=== PATIENT | male | born 1975 | race Caucasian/White ===

== ENCOUNTER 2017-07-23 07:45 | Day surgery (SDC) | payer BC, MEDICARE ==
[~2017-07-23 07:45] MED LIST: Lactated Ringers 1,000 ML IV SCH; Lidocaine 2% 5 ML SDV ONE; Propofol 200 MG/20 ML SDV ONE; fentaNYL 100 MCG/2 ML SDV IVPUSH PRN; fentaNYL 100 MCG/2 ML SDV ONE
--- NOTE | 2017-07-23 08:12 | PCM.PREANE ---
Preanesthetic Assessment - Anesthesia/Transfusion/Family Hx Anesthesia History: Prior Anesthesia Reaction Type of Anesthesia Reaction: Other (see below) (sore throat post anesthesia) Family History of Anesthesia Reaction: No Transfusion History: No Prior Transfusion(s) Intubation History: Unknown - Review of Systems General: No Symptoms Pulmonary: No Symptoms Cardiovascular: No Symptoms Gastrointestinal: No Symptoms Neurological: No Symptoms Other: Reports: None - Physical Assessment Height: 1.75 m Weight: 109.769 kg ASA Class: 3 Mental Status: Alert & Oriented x3 Airway Class: Mallampati = 2 Dentition: Reports: Normal Dentition (grinded edges on front teeth) Thyro-Mental Finger Breadths: 3 Mouth Opening Finger Breadths: 2 ROM/Head Extension: Full Lungs: Clear to Auscultation, Normal Respiratory Effort Cardiovascular: Regular Rate, Regular Rhythm - Allergies Allergies/Adverse Reactions: Allergies Allergy/AdvReac Type Severity Reaction Status Date / Time codeine Allergy Nausea and Verified 07/22/17 10:38 Vomiting morphine Allergy Nausea and Verified 07/22/17 10:38 Vomiting - Blood Blood Available: No - Anesthesia Plan Pre-Op Medication Ordered: None - Acknowledgements Anesthesia Type Planned: General Anesthesia Pt an Appropriate Candidate for the Planned Anesthesia: Yes Alternatives and Risks of Anesthesia Discussed w Pt/Guardian: Yes Pt/Guardian Understands and Agrees with Anesthesia Plan: Yes PreAnesthesia Questionnaire HEENT History: Reports: Other (See Below) Other HEENT History: uses reading glasses Gastrointestinal History: Reports: GERD Genitourinary History: Reports: Renal Disease Other Genitourinary History: previous hemodialysis, on peritoneal dialysis since couple of weeks ago ( 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) Endocrine/Metabolic History: Reports: Obesity/BMI 30+ (BMI 35.7) Hematologic History: Reports: Anticoagulation Therapy Other Hematologic History: takes heparin weekly Immunologic History: Reports: Immunosuppression - Past Surgical History Head Surgeries/Procedures: Reports: None Male Surgical History: Reports: Nephrectomy Other Male Surgeries/Procedures: hx of failed kidney transplant 11/01, hemodialysis cath 12/01, peritoneal dialysis cath 2 weeks ago - SUBSTANCE USE Smoking Status *Q: Never Smoker Recreational Drug Use History: No - HOME MEDS Home Medications: Home Meds Aspirin [[place] Aspirin] 1 tab PO BEDTIME 07/22/17 [History] Bisacodyl [Dulcolax] 5 mg PO BEDTIME 07/22/17 [History] Folic Acid 1 mg PO BEDTIME 07/22/17 [History] Multivitamin [Multivitamins] 1 tab PO BEDTIME 07/22/17 [History] Sevelamer Carbonate [Renvela] 1 tab PO TIDMEALS 07/22/17 [History] predniSONE [Prednisone] 5 mg PO BEDTIME 07/22/17 [History] - CURRENT (IN HOUSE) MEDS Current Meds: Current Medications Fentanyl (Sublimaze) 50 mcg IVPUSH .Q5MIN PRN PRN Reason: Pain Lactated Ringer's (Ringers, Lactated) 1,000 mls @ 125 mls/hr IV ASDIRECTED BRANDON Discontinued Medications Fentanyl (Sublimaze) Confirm Administered Dose 100 mcg .ROUTE .STK-MED ONE Stop: 07/23/17 07:27 Lidocaine (Xylocaine-Mpf 2%) Confirm Administered Dose 5 ml .ROUTE .STK-MED ONE Stop: 07/23/17 07:27 Propofol (Diprivan 20 Ml) Confirm Administered Dose 400 mg .ROUTE .STK-MED ONE Stop: 07/23/17 07:27
[2017-07-23] MEDS ORDERED: Bupivacaine 0.5% 10 ML SDV ONE (08:16)
[2017-07-23] MEDS ORDERED: Lidocaine 1% 20 ML MDV ONE (08:16)
--- NOTE | 2017-07-23 09:43 | PCM.OPNOTE ---
- General Post-Op/Procedure Note Date of Surgery/Procedure: 07/23/17 Operative Procedure(s): Removal Henrry dialysis catheter Pre Op Diagnosis: Chronic renal failure. Peritoneal dialysis patient. Post-Op Diagnosis: Same Anesthesia Technique: Local, MAC (ASA III) Primary Surgeon: Nik Hernandez Fluid Replacement, Intraop: 50 EBL in mLs: 5 Condition: Good Free Text/Narrative:: Intake & Output 07/22/17 07/23/17 07/23/17 19:59 03:59 11:59 Intake Total 150 Balance 150 DICTATION [id number] CPT CODE 65732
[2017-07-23] MEDS ORDERED: Lactated Ringers 1,000 ML IV SCH (09:45)
--- NOTE | 2017-07-23 09:54 | PCM48HPAN ---
Post Anesthesia Note - EVALUATION WITHIN 48HRS OF ANESTHETIC Vital Signs in Normal Range: Yes Patient Participated in Evaluation: Yes Respiratory Function Stable: Yes Airway Patent: Yes Cardiovascular Function Stable: Yes Hydration Status Stable: Yes Pain Control Satisfactory: Yes Nausea and Vomiting Control Satisfactory: Yes Mental Status Recovered: Yes Resp Rate: 13 - COMMENTS/OBSERVATIONS Free Text/Narrative:: no anesthesia problems
[2017-07-23 09:57] VITALS: BP 122/77
--- NOTE | 2017-07-23 14:06 | OR ---
SURGEON: Nik Hernandez M.D. DATE OF PROCEDURE: 07/23/2017 OPERATION PERFORMED: Removal of Henrry dialysis catheter. ANESTHESIA: Local MAC. ASA CLASSIFICATION: III. PREOPERATIVE DIAGNOSIS: Desire for dialysis catheter removal. POSTOPERATIVE DIAGNOSIS: Desire for dialysis catheter removal. ESTIMATED BLOOD LOSS: 5 mL. INTRAOPERATIVE FLUID REPLACEMENT: 50 mL. DESCRIPTION OF PROCEDURE: The patient was taken to the operating room and placed on the operating table in the supine position. Time-out was called for appropriate identification of the patient and procedure. Monitored anesthesia care was provided. The surgical site was prepped with ChloraPrep and sterile drapes were applied. The catheter was manipulated in attempt to find the cuff, which appeared to be approximately 3 cm from the exit site. The skin overlying this was then infiltrated with 1% Xylocaine and 0.5% Marcaine solution. The skin incision was made and deepened down to the catheter ventrally identifying the cuff more distally. The catheter was cut and the intravascular portion removed. Pressure was held over the right internal jugular for 2 minutes. Once the pressure was released, there was no bleeding. The remainder of the catheter, which had been cut was now removed. The wounds were inspected for hemostasis and bleeding sites were electrocoagulated. Incisions closed with subcutaneous 3-0 Vicryl and the skin with 4-0 nylon. Sterile Tegaderm pad was placed as a dressing. Sponge, needle, and instrument counts were all correct. The patient tolerated the procedure well and was taken to recovery room in satisfactory condition. GURERERO / ANTHONY /[id number]
== END 2017-07-23 10:18 | disposition home or self-care (01) ==
LOC: MW.SDS 07:45
PROVIDERS: ATTEND Surgery
DX: Z49.02 Encounter for fitting and adjustment of peritoneal dialysis catheter (principal); N18.9 Chronic kidney disease, unspecified; K21.9 Gastro-esophageal reflux disease without esophagitis; Z88.5 Allergy status to narcotic agent; Z79.82 Long term (current) use of aspirin; Z79.899 Other long term (current) drug therapy
CPT/HCPCS: 36415; 49422; 84132; J3010; J2704

== ENCOUNTER 2018-02-21 12:02 | Emergency (ER) | payer BC, MEDICARE ==
[2018-02-21] MEDS ORDERED: Sodium Chloride 0.9% 10 ML Syringe FLUSH PRN (12:13)
[2018-02-21] MEDS ORDERED: Sodium Chloride 0.9% 2.5 ML Syringe FLUSH PRN (12:13)
[2018-02-21] MEDS ORDERED: Ondansetron 4 MG/2 ML SDV IVPUSH ONE (12:27)
--- NOTE | 2018-02-21 12:34 | EDM.PDOC ---
ED HPI GENERAL MEDICAL PROBLEM - General Chief Complaint: Abdominal Pain Stated Complaint: STOMACH PAIN Time Seen by Provider: 02/21/18 12:08 Source of Information: Reports: Family History Limitations: Reports: No Limitations - History of Present Illness INITIAL COMMENTS - FREE TEXT/NARRATIVE: History of present illness: []Patient has a history of renal failure who received a kidney transplant on October 26, 2016. He has been on peritoneal dialysis for 6 months. Before that he was on hemodialysis. Patient has had belly pain with vomiting for one week but denies any fevers, chills or any abnormal diarrhea. Patient had peritoneal dialysis last night and the notes that the clear no cloudiness or blood. Review of systems: As per history of present illness and below otherwise all systems reviewed and negative. Past medical history: As per history of present illness and as reviewed below otherwise noncontributory. Surgical history: As per history of present illness and as reviewed below otherwise noncontributory. Social history: No reported history of drug or alcohol abuse. Family history: As per history of present illness and as reviewed below otherwise noncontributory. Physical exam: General: Well developed, well nourished in NAD HEENT: Atraumatic, normocephalic, pupils reactive, negative for conjunctival pallor or scleral icterus, mucous membranes moist, throat clear, neck supple, nontender, trachea midline. Lungs: Clear to auscultation, breath sounds equal bilaterally, chest nontender. Heart: S1S2, regular, negative for clicks, rubs, or JVD. Abdomen: NABS, Soft, nondistended, nontender. Negative for masses or hepatosplenomegaly. Negative for costovertebral tenderness. Pelvis: Stable nontender. Genitourinary: Deferred. Rectal: Deferred. Extremities: Atraumatic, negative for cords or calf pain. Neurovascular unremarkable. Neuro: Awake, alert, oriented. Cranial nerves II through XII unremarkable. Cerebellum unremarkable. Motor and sensory unremarkable throughout. Exam nonfocal. Skin:warm and dry Diagnostics: CT abdomen and pelvis, CBC, chemistry, lipase Therapeutics: None ED Course: 12:25-spoke with Dr. Servin from [facility] who recommended CT abdomen pelvis without contrast and then transferred patient for admission and [place] for further workup. Impression: Renal failure Prescriptions: Plan: Transfer to to Dr. Forrester in the ED accepts patient Definitive disposition and diagnosis as appropriate pending reevaluation and review of above. abdominal Pain Score (Numeric/FACES): 5 - Related Data Allergies Allergy/AdvReac Type Severity Reaction Status Date / Time codeine Allergy Nausea and Verified 02/21/18 12:15 Vomiting morphine Allergy Nausea and Verified 02/21/18 12:15 Vomiting Home Meds: Home Meds Aspirin [[place] Aspirin EC] 1 tab PO BEDTIME 07/22/17 [History] Bisacodyl [Dulcolax] 5 mg PO BID 07/22/17 [History] Folic Acid 1 mg PO DAILY 07/22/17 [History] Multivitamin [Multivitamins] 1 tab PO BEDTIME 07/22/17 [History] Sevelamer Carbonate [Renvela] 1 tab PO TIDMEALS 07/22/17 [History] predniSONE [Prednisone] 5 mg PO DAILY 07/22/17 [History] Sertraline HCl [Zoloft] 5 mg PO BID 02/21/18 [History] Past Medical History HEENT History: Reports: Other (See Below) Other HEENT History: uses reading glasses Gastrointestinal History: Reports: GERD Genitourinary History: Reports: Renal Disease Other Genitourinary History: previous hemodialysis, on peritoneal dialysis since couple of weeks ago ( 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) Psychiatric History: Reports: Anxiety, Depression Endocrine/Metabolic History: Reports: Obesity/BMI 30+ Hematologic History: Reports: Anticoagulation Therapy Other Hematologic History: takes heparin weekly Immunologic History: Reports: Immunosuppression - Infectious Disease History Infectious Disease History: Reports: Chicken Pox - Past Surgical History Head Surgeries/Procedures: Reports: None Male Surgical History: Reports: Nephrectomy Other Male Surgeries/Procedures: hx of failed kidney transplant 11/01, hemodialysis cath 12/01, peritoneal dialysis cath Social & Family History - Family History Family Medical History: Noncontributory - Tobacco Use Smoking Status *Q: Never Smoker Second Hand Smoke Exposure: No - Caffeine Use Caffeine Use: Reports: Soda - Recreational Drug Use Recreational Drug Use: No - Living Situation & Occupation Living situation: Reports: Occupation: Disabled ED ROS GENERAL - Review of Systems Review Of Systems: ROS reveals no pertinent complaints other than HPI. ED EXAM, RENAL/ - Physical Exam Exam: See Below (See history of present illness) Course - Vital Signs Last Recorded V/S: Last Vital Signs Temp 97.4 F 02/21/18 12:50 Pulse 95 02/21/18 12:50 Resp 18 02/21/18 12:50 BP 113/75 02/21/18 12:50 Pulse Ox 98 02/21/18 12:50 - Orders/Labs/Meds Orders: Active Orders 24 hr Category Date Time Status Abdomen Pelvis wo Cont [CT] Stat Exams 02/21/18 12:25 Taken Saline Lock Insert [OM.PC] Stat Oth 02/21/18 12:13 Ordered Labs: Laboratory Tests 02/21/18 02/21/18 Range/Units 12:20 12:20 WBC 12.25 H (4.0-11.0) K/uL RBC 3.53 L (4.50-5.90) M/uL Hgb 11.9 L (13.0-17.0) g/dL Hct 34.0 L (38.0-50.0) % MCV 96.3 (80.0-98.0) fL MCH 33.7 H (27.0-32.0) pg MCHC 35.0 (31.0-37.0) g/dL RDW Std Deviation 46.1 (28.0-62.0) fl RDW Coeff of Melissa 13 (11.0-15.0) % Plt Count 270 (150-400) K/uL MPV 9.30 (7.40-12.00) fL Add Manual Diff YES Neutrophils % (Manual) 69 (48.0-80.0) % Band Neutrophils % 3 % Lymphocytes % (Manual) 21 (16.0-40.0) % Monocytes % (Manual) 5 (0.0-15.0) % Eosinophils % (Manual) 1 (0.0-7.0) % Basophils % (Manual) 1 (0.0-1.5) % Nucleated RBC % 0.0 /100WBC Absolute Seg Neuts 8.5 H (1.4-5.7) Band Neutrophils # 0.4 Lymphocytes # (Manual) 2.6 H (0.6-2.4) Monocytes # (Manual) 0.6 (0.0-0.8) Eosinophils # (Manual) 0.1 (0.0-0.7) Basophils # (Manual) 0.1 (0.0-0.1) Nucleated RBCs # 0 K/uL Sodium 136 (136-148) mmol/L Potassium 3.9 (3.5-5.1) mmol/L Chloride 97 L (98-107) mmol/L Carbon Dioxide 21.3 (21.0-32.0) mmol/L BUN 71 H (7.0-18.0) mg/dL Creatinine 16.2 H (0.8-1.3) mg/dL Est Cr Clr Drug Dosing 5.82 mL/min Estimated GFR (MDRD) 3.3 ml/min Glucose 123 H (74-106) mg/dL Calcium 9.5 (8.5-10.1) mg/dL Total Bilirubin 0.4 (0.2-1.0) mg/dL AST 12 L (15-37) IU/L ALT 41 (14-63) IU/L Alkaline Phosphatase 95 (46-116) U/L Total Protein 8.5 H (6.4-8.2) g/dL Albumin 3.8 (3.4-5.0) g/dL Globulin 4.7 H (2.6-4.0) g/dL Albumin/Globulin Ratio 0.8 L (0.9-1.6) Meds: Medications Discontinued Medications Generic Name Dose Route Start Last Admin Trade Name Freq PRN Reason Stop Dose Admin Ondansetron HCl 4 mg 02/21/18 12:27 02/21/18 12:49 Zofran IVPUSH 02/21/18 12:28 4 mg ONETIME ONE Administration Sodium Chloride 10 ml 02/21/18 12:13 02/21/18 12:49 Saline Flush FLUSH 10 ml ASDIRECTED PRN Administration Keep Vein Open Sodium Chloride 2.5 ml 02/21/18 12:13 02/21/18 12:49 Saline Flush FLUSH 2.5 ml ASDIRECTED PRN Administration Keep Vein Open Departure - Departure Time of Disposition: 13:00 Disposition: DC/Tfer to Acute Hospital 02 Condition: Good Clinical Impression: Abdominal pain, Peritoneal dialysis catheter in place, Renal failure, Renal transplant recipient - Discharge Information *PRESCRIPTION DRUG MONITORING PROGRAM REVIEWED*: No *COPY OF PRESCRIPTION DRUG MONITORING REPORT IN PATIENT HARSHA: No Referrals: Jerzy Camacho MD [Primary Care Provider] - Forms: ED Department Discharge - My Orders Last 24 Hours: My Active Orders 02/21/18 12:13 Saline Lock Insert [OM.PC] Stat 02/21/18 12:25 Abdomen Pelvis wo Cont [CT] Stat - Assessment/Plan Last 24 Hours: My Active Orders 02/21/18 12:13 Saline Lock Insert [OM.PC] Stat 02/21/18 12:25 Abdomen Pelvis wo Cont [CT] Stat
[2018-02-21 12:51] VITALS: BP 113/75
--- NOTE | 2018-02-22 10:55 | CT ---
EXAM DATE: 02/21/18 PATIENT'S AGE: 42 Patient: ALFREDA SARABIA Facility: [place], [place] Site . Site : [id number] Study: CT Abdomen/Pelvis WO CONT [id number] 12:59:09 PM Ordering Physician: Zoran Duarte Final Report: INDICATION: Abdominal pain. COMPARISON: CT abdomen pelvis dated 03/31/2017. TECHNIQUE: A CT volumetric acquisition was performed of the abdomen and pelvis without IV contrast. FINDINGS: The lung bases are clear. There is no evidence of pleural or pericardial fluid. Heart size appears normal. The patient`s liver and spleen demonstrate normal size and uniform density. There is no evidence of mass or inflammation within the pancreas. On image 24 there is a stable soft tissue bulge projecting posteriorly off the gastric fundus. This measures 2.4 x 1.7 cm. The surrounding fat planes appear clear. Findings are indeterminate. Changes could indicate a leiomyoma of the gastric wall. A gastrointestinal stromal tumor or other malignant process cannot be excluded with certainty. Gallbladder and bile ducts appear normal. The adrenal glands have normal morphology. The [place] kidneys appear stable. There are bilateral nonobstructing calculi. The largest calculus within the lower pole left kidney measures 16 mm. There is a stable 2.1 cm cyst projecting posteriorly off the lower margin of the right kidney. There is no evidence of ureteral calculus or hydronephrosis. The abdominal aorta appears normal. There is no evidence retroperitoneal hemorrhage on lymphadenopathy. The appendix is visualized in the right lower quadrant and appears normal. The right pelvic transplant kidney appears stable with no evidence of hydronephrosis. There is normal appearance of the small intestine and colon. Prostate gland appears normal. The urinary bladder is contracted. There is no evidence of dependent fluid in the cul de sac. IMPRESSION: 1. No acute inflammatory change noted within the abdomen and pelvis. 2. Stable renal calculi within the [place] kidneys. No evidence of obstructive hydronephrosis. 3. Stable soft tissue mass projecting posteriorly off the gastric fundus. Consider further characterization with a MRI exam. Please note that all CT scans at this facility use dose modulation, iterative reconstruction, and/or weight-based dosing when appropriate to reduce radiation dose to as low as reasonably achievable. Dictated by Sim Cardona MD @ Feb 21 2018 1:41PM (Electronic Signature) Report Signed by Proxy. [facility]
== END 2018-02-21 13:01 ==
LOC: MW.ED 12:02
DX: N19 Unspecified kidney failure (principal); Z49.02 Encounter for fitting and adjustment of peritoneal dialysis catheter; K21.9 Gastro-esophageal reflux disease without esophagitis; F32.9 Major depressive disorder, single episode, unspecified; F41.9 Anxiety disorder, unspecified; Z79.82 Long term (current) use of aspirin; Z79.899 Other long term (current) drug therapy; Z94.0 Kidney transplant status; Z88.5 Allergy status to narcotic agent; Z88.6 Allergy status to analgesic agent
CPT/HCPCS: 74176; 80053; 85025; 96374; 99285; J2405

== ENCOUNTER 2018-12-13 17:56 | Emergency (ER) | payer BC, MEDICARE ==
[2018-12-13] MEDS ORDERED: Sodium Chloride 0.9% 10 ML Syringe FLUSH PRN (18:04)
[2018-12-13] MEDS ORDERED: Sodium Chloride 0.9% 2.5 ML Syringe FLUSH PRN (18:04)
[2018-12-13] MEDS ORDERED: Ondansetron 4 MG/2 ML SDV IVPUSH ONE ×2 (18:05→19:35)
[2018-12-13] MEDS ORDERED: fentaNYL 100 MCG/2 ML SDV IVPUSH ONE (18:05)
[2018-12-13] MEDS ORDERED: Sodium Chloride 0.9% 250 ML IV SCH (18:15)
--- NOTE | 2018-12-13 18:20 | EDM.PDOC ---
<Sim Aragon J - Last Filed: 12/13/18 18:06> ED HPI GENERAL MEDICAL PROBLEM - General Chief Complaint: General Stated Complaint: ILL AFTER DIALYSIS Time Seen by Provider: 12/13/18 18:00 - History of Present Illness INITIAL COMMENTS - FREE TEXT/NARRATIVE: HISTORY AND PHYSICAL: History of present illness: Patient 43-year-old male history of chronic renal failure who presents status post dialysis in which he developed a headache and generally feeling ill states he had similar episodes in the past that has responded to analgesics and IV fluid. He denies fever chills nausea vomiting recent head injury chest pain shortness breath or other concern. Review of systems: As per history of present illness and below otherwise all systems reviewed and negative. Past medical history: As per history of present illness and as reviewed below otherwise noncontributory. Surgical history: As per history of present illness and as reviewed below otherwise noncontributory. Social history: No reported history of drug or alcohol abuse. Family history: As per history of present illness and as reviewed below otherwise noncontributory. Physical exam: HEENT: Atraumatic, normocephalic, pupils reactive, negative for conjunctival pallor or scleral icterus, mucous membranes moist, throat clear, neck supple, nontender, trachea midline. Lungs: Clear to auscultation, breath sounds equal bilaterally, chest nontender. Heart: S1S2, regular, negative for clicks, rubs, or JVD. Abdomen: Soft, nondistended, nontender. Negative for masses or hepatosplenomegaly. Negative for costovertebral tenderness. Pelvis: Stable nontender. Genitourinary: Deferred. Rectal: Deferred. Extremities: Atraumatic, negative for cords or calf pain. Neurovascular unremarkable. Neuro: Awake, alert, oriented. Cranial nerves II through XII unremarkable. Cerebellum unremarkable. Motor and sensory unremarkable throughout. Exam nonfocal. Diagnostics: CBC CMP troponin PT/INR chest x-ray EKG CT brain Therapeutics: Saline 250 mL bolus fentanyl 25 g IV Zofran 4 mg IV Impression: #1 cephalgia #2 chronic renal failure Definitive disposition and diagnosis as appropriate pending reevaluation and review of above. - Related Data Allergies Allergy/AdvReac Type Severity Reaction Status Date / Time codeine Allergy Nausea and Verified 12/13/18 18:17 Vomiting morphine Allergy Nausea and Verified 12/13/18 18:17 Vomiting Home Meds: Home Meds Aspirin [[place] Aspirin EC] 1 tab PO BEDTIME 07/22/17 [History] Bisacodyl [Dulcolax] 5 mg PO BID 07/22/17 [History] Folic Acid 1 mg PO DAILY 07/22/17 [History] Multivitamin [Multivitamins] 1 tab PO BEDTIME 07/22/17 [History] Sevelamer Carbonate [Renvela] 1 tab PO TIDMEALS 07/22/17 [History] predniSONE [Prednisone] 5 mg PO DAILY 07/22/17 [History] Sertraline HCl [Zoloft] 5 mg PO BID 02/21/18 [History] Past Medical History HEENT History: Reports: Other (See Below) Other HEENT History: uses reading glasses Gastrointestinal History: Reports: GERD Genitourinary History: Reports: Renal Disease Other Genitourinary History: previous hemodialysis, on peritoneal dialysis since couple of weeks ago ( 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) Psychiatric History: Reports: Anxiety, Depression Endocrine/Metabolic History: Reports: Obesity/BMI 30+ Hematologic History: Reports: Anticoagulation Therapy Other Hematologic History: takes heparin weekly Immunologic History: Reports: Immunosuppression - Infectious Disease History Infectious Disease History: Reports: Chicken Pox - Past Surgical History Head Surgeries/Procedures: Reports: None Male Surgical History: Reports: Nephrectomy Other Male Surgeries/Procedures: hx of failed kidney transplant 11/01, hemodialysis cath 12/01, peritoneal dialysis cath Social & Family History - Family History Family Medical History: Noncontributory - Caffeine Use Caffeine Use: Reports: Soda - Living Situation & Occupation Living situation: Reports: Occupation: Disabled ED ROS GENERAL - Review of Systems Review Of Systems: ROS reveals no pertinent complaints other than HPI. ED EXAM, GENERAL - Physical Exam Exam: See Below (See dictation) Course - Vital Signs Last Recorded V/S: Last Vital Signs Temp 96.9 F 12/13/18 18:15 Pulse 72 12/13/18 19:03 Resp 16 12/13/18 19:03 BP 127/79 12/13/18 19:03 Pulse Ox 98 12/13/18 19:03 - Orders/Labs/Meds Orders: Active Orders 24 hr Category Date Time Status Cardiac Monitoring [RC] . DIRECTED Care 12/13/18 18:04 Active EKG Documentation Completion [RC] STAT Care 12/13/18 18:04 Active Oxygen Therapy [RC] ASDIRECTED Care 12/13/18 18:04 Active UA W/MICROSCOPIC [URIN] Stat Lab 12/13/18 18:04 Ordered Sodium Chloride 0.9% [Normal Saline] 250 ml Med 12/13/18 18:15 Active IV STAT Sodium Chloride 0.9% [Saline Flush] Med 12/13/18 18:04 Active 10 ml FLUSH ASDIRECTED PRN Sodium Chloride 0.9% [Saline Flush] Med 12/13/18 18:04 Active 2.5 ml FLUSH ASDIRECTED PRN Saline Lock Insert [OM.PC] Stat Oth 12/13/18 18:04 Ordered Medication Orders Sodium Chloride (Normal Saline) 250 mls @ 999 mls/hr IV STAT BRANDON Last Admin: 12/13/18 18:25 Dose: 999 mls/hr Sodium Chloride (Saline Flush) 10 ml FLUSH ASDIRECTED PRN PRN Reason: Keep Vein Open Sodium Chloride (Saline Flush) 2.5 ml FLUSH ASDIRECTED PRN PRN Reason: Keep Vein Open Labs: Laboratory Tests 12/13/18 12/13/18 12/13/18 Range/Units 18:15 18:15 18:15 WBC 9.21 (4.0-11.0) K/uL RBC 3.58 L (4.50-5.90) M/uL Hgb 11.7 L (13.0-17.0) g/dL Hct 34.2 L (38.0-50.0) % MCV 95.5 (80.0-98.0) fL MCH 32.7 H (27.0-32.0) pg MCHC 34.2 (31.0-37.0) g/dL RDW Std Deviation 45.6 (28.0-62.0) fl RDW Coeff of Melissa 13 (11.0-15.0) % Plt Count 222 (150-400) K/uL MPV 9.50 (7.40-12.00) fL Neut % (Auto) 69.0 (48.0-80.0) % Lymph % (Auto) 19.1 (16.0-40.0) % [place] % (Auto) 7.1 (0.0-15.0) % Eos % (Auto) 4.3 (0.0-7.0) % Baso % (Auto) 0.5 (0.0-1.5) % Neut # (Auto) 6.4 H (1.4-5.7) K/uL Lymph # (Auto) 1.8 (0.6-2.4) K/uL [place] # (Auto) 0.7 (0.0-0.8) K/uL Eos # (Auto) 0.4 (0.0-0.7) K/uL Baso # (Auto) 0.1 (0.0-0.1) K/uL Nucleated RBC % 0.0 /100WBC Nucleated RBCs # 0 K/uL INR 0.96 Sodium 136 (136-148) mmol/L Potassium 4.0 (3.5-5.1) mmol/L Chloride 94 L (98-107) mmol/L Carbon Dioxide 29.9 (21.0-32.0) mmol/L BUN 36 H (7.0-18.0) mg/dL Creatinine 7.9 H (0.8-1.3) mg/dL Est Cr Clr Drug Dosing 11.81 mL/min Estimated GFR (MDRD) 7.4 ml/min Glucose 94 (74-106) mg/dL Calcium 9.0 (8.5-10.1) mg/dL Total Bilirubin 0.3 (0.2-1.0) mg/dL AST 17 (15-37) IU/L ALT 31 (14-63) IU/L Alkaline Phosphatase 86 (46-116) U/L Troponin I < 0.050 (0.000-0.056) ng/mL Total Protein 8.6 H (6.4-8.2) g/dL Albumin 4.0 (3.4-5.0) g/dL Globulin 4.6 H (2.6-4.0) g/dL Albumin/Globulin Ratio 0.9 (0.9-1.6) Meds: Medications Generic Name Dose Route Start Last Admin Trade Name Freq PRN Reason Stop Dose Admin Sodium Chloride 250 mls @ 999 mls/hr 12/13/18 18:15 12/13/18 18:25 Normal Saline IV 999 mls/hr STAT BRANDON Administration Sodium Chloride 10 ml 12/13/18 18:04 Saline Flush FLUSH ASDIRECTED PRN Keep Vein Open Sodium Chloride 2.5 ml 12/13/18 18:04 Saline Flush FLUSH ASDIRECTED PRN Keep Vein Open Discontinued Medications Generic Name Dose Route Start Last Admin Trade Name [place] PRN Reason Stop Dose Admin Fentanyl 25 mcg 12/13/18 18:05 12/13/18 18:26 Sublimaze IVPUSH 12/13/18 18:06 25 mcg ONETIME ONE Administration Ondansetron HCl 4 mg 12/13/18 18:05 12/13/18 18:26 Zofran IVPUSH 12/13/18 18:06 4 mg ONETIME ONE Administration Departure - Departure Disposition: Home, Self-Care 01 Clinical Impression: Cephalgia - Discharge Information Referrals: Guy Nunez MD [Primary Care Provider] - Forms: ED Department Discharge Additional Instructions: The following information is given to patients seen in the emergency department who are being discharged to home. This information is to outline your options for follow-up care. We provide all patients seen in our emergency department with a follow-up referral. The need for follow-up, as well as the timing and circumstances, are variable depending upon the specifics of your emergency department visit. If you don't have a primary care physician on staff, we will provide you with a referral. We always advise you to contact your personal physician following an emergency department visit to inform them of the circumstance of the visit and for follow-up with them and/or the need for any referrals to a consulting specialist. The emergency department will also refer you to a specialist when appropriate. This referral assures that you have the opportunity for follow-up care with a specialist. All of these measure are taken in an effort to provide you with optimal care, which includes your follow-up. Under all circumstances we always encourage you to contact your private physician who remains a resource for coordinating your care. When calling for follow-up care, please make the office aware that this follow-up is from your recent emergency room visit. If for any reason you are refused follow-up, please contact the [facility] emergency department at and asked to speak to the emergency department charge nurse. <Omar Vance - Last Filed: 12/13/18 19:31> ED ROS GENERAL - Review of Systems Review Of Systems: See Below ED EXAM, GENERAL - Physical Exam Exam: See Below Departure - Departure Time of Disposition: 19:31 Condition: Good
[2018-12-13 18:44] LABS: BLOOD UREA NITROGEN,BUN 36 mg/dL (7.0-18.0); CARBON DIOXIDE,CO2 29.9 mmol/L (21.0-32.0); CHLORIDE,CL 94 mmol/L (98-107); GLUCOSE RANDOM 94 mg/dL (74-106); SODIUM,NA 136 mmol/L (136-148)
--- NOTE | 2018-12-13 19:07 | CR ---
Indication: Headache. Weakness after dialysis. Technique: A single AP portable view of the chest was obtained. Comparison: None Findings: A right-sided infusion catheter is identified. The left hemidiaphragm is elevated. The heart is normal in size. No infiltrate, pleural effusion, or pneumothorax is identified. Impression: No acute cardiopulmonary process. Dictated by Blank Maxwell MD @ Dec 13 2018 7:06PM Signed by Dr. Blank Maxwell @ Dec 13 2018 7:06PM
--- NOTE | 2018-12-13 19:14 | CT ---
INDICATION: Head pain TECHNIQUE: CT head without contrast. COMPARISON: None FINDINGS: CSF spaces: Within normal limits for age. Brain parenchyma: The gaines-white differentiation is normal. No sign of mass, hemorrhage, or midline shift. Skull base and calvarium: The visualized paranasal sinuses and mastoid air cells demonstrate no acute or significant findings. The visualized orbits are grossly unremarkable. No skull fractures. IMPRESSION: Unremarkable noncontrast head CT. Please note that all CT scans at this facility use dose modulation, iterative reconstruction, and/or weight-based dosing when appropriate to reduce radiation dose to as low as reasonably achievable. Dictated by Makayla Whitt MD @ Dec 13 2018 7:11PM Signed by Dr. Makayla Whitt @ Dec 13 2018 7:12PM
[2018-12-13 19:37] VITALS: BP 129/75; PULSE 79
[2018-12-13] MEDS ORDERED: diphenhydrAMINE 50 MG/ML SDV IVPUSH ONE (19:45)
== END 2018-12-13 20:11 | disposition home or self-care (01) ==
LOC: MW.ED 17:56
DX: R51 Headache (principal); N18.6 End stage renal disease; E66.9 Obesity, unspecified; F32.9 Major depressive disorder, single episode, unspecified; F41.9 Anxiety disorder, unspecified; Z68.36 Body mass index [BMI] 36.0-36.9, adult; Z79.82 Long term (current) use of aspirin; Z79.899 Other long term (current) drug therapy; Z88.5 Allergy status to narcotic agent; Z88.6 Allergy status to analgesic agent; Z99.2 Dependence on renal dialysis
CPT/HCPCS: 36415; 70450; 71045; 80053; 84484; 85025; 85610; 93005; 96374; 96375; 96376; 99284; J1200; J2405; J3010; J7050

== ENCOUNTER 2019-01-02 07:51 | Day surgery (SDC) | payer BC, MEDICARE ==
[~2019-01-02 07:51] MED LIST changes: -Lidocaine 2% 5 ML SDV ONE; -Propofol 200 MG/20 ML SDV ONE; -fentaNYL 100 MCG/2 ML SDV IVPUSH PRN; -fentaNYL 100 MCG/2 ML SDV ONE
--- NOTE | 2019-01-02 08:43 | PCM.PREANE ---
Preanesthetic Assessment - Anesthesia/Transfusion/Family Hx Anesthesia History: Prior Anesthesia Without Reaction Family History of Anesthesia Reaction: No Transfusion History: No Prior Transfusion(s) Intubation History: Unknown - Review of Systems General: No Symptoms Pulmonary: No Symptoms Cardiovascular: No Symptoms Gastrointestinal: No Symptoms Neurological: No Symptoms Other: Reports: None - Physical Assessment Height: 5 ft 9 in Weight: 113.398 kg ASA Class: 3 Mental Status: Alert & Oriented x3 Airway Class: Mallampati = 2 Dentition: Reports: Normal Dentition Thyro-Mental Finger Breadths: 3 Mouth Opening Finger Breadths: 2 ROM/Head Extension: Limited/Partial Lungs: Clear to Auscultation, Normal Respiratory Effort Cardiovascular: Regular Rate, Regular Rhythm - Allergies Allergies/Adverse Reactions: Allergies Allergy/AdvReac Type Severity Reaction Status Date / Time codeine Allergy Nausea and Verified 12/30/18 10:44 Vomiting morphine Allergy Nausea and Verified 12/30/18 10:44 Vomiting - Blood Blood Available: No - Anesthesia Plan Pre-Op Medication Ordered: None - Acknowledgements Anesthesia Type Planned: General Anesthesia Pt an Appropriate Candidate for the Planned Anesthesia: Yes Alternatives and Risks of Anesthesia Discussed w Pt/Guardian: Yes Pt/Guardian Understands and Agrees with Anesthesia Plan: Yes PreAnesthesia Questionnaire HEENT History: Reports: Other (See Below) Other HEENT History: uses reading glasses Respiratory History: Reports: Sleep Apnea Other Respiratory History: just diagnosed with sleep apnea- has not received CPAP yet Gastrointestinal History: Reports: GERD, PUD Other Gastrointestinal History: has Umbilical Hernia Genitourinary History: Reports: Dialysis, Renal Disease (h/o kidney transplant) Other Genitourinary History: 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- previous peritoneal dialysis catheter insertion and removal, A-V fistula on left arm matured Neurological History: Reports: Other (See Below) Other Neuro History: hx of motion sickness Psychiatric History: Reports: Anxiety, Depression Endocrine/Metabolic History: Reports: Obesity/BMI 30+ (BMI 36.9) Hematologic History: Reports: Anticoagulation Therapy Other Hematologic History: takes heparin weekly Immunologic History: Reports: Solid Organ Transplant - Infectious Disease History Infectious Disease History: Reports: Chicken Pox - Past Surgical History Head Surgeries/Procedures: Reports: None Cardiovascular Surgical History: Reports: Vascular Surgery Other Cardiovascular Surgeries/Procedures: AV fistula left arm, Port-a-Cath GI Surgical History: Reports: Colonoscopy Male Surgical History: Reports: Nephrectomy, Other (See Below) Other Male Surgeries/Procedures: hx of kidney transplant- "blood vessel kinked off and the kidney " post-op - SUBSTANCE USE Smoking Status *Q: Never Smoker Recreational Drug Use History: No - HOME MEDS Home Medications: Home Meds Aspirin [[place] Aspirin EC] 1 tab PO BEDTIME 07/22/17 [History] Folic Acid 1 mg PO DAILY 07/22/17 [History] Multivitamin [Multivitamins] 1 tab PO BEDTIME 07/22/17 [History] Sevelamer Carbonate [Renvela] 3 tab PO TIDMEALS 07/22/17 [History] predniSONE [Prednisone] 5 mg PO DAILY 07/22/17 [History] Calcium Acetate [Calphron] 667 mg PO TIDMEALS 12/30/18 [History] Ondansetron [Ondansetron ODT] 4 mg PO DAILY 12/30/18 [History] Sertraline HCl 100 mg PO DAILY 12/30/18 [History] - CURRENT (IN HOUSE) MEDS Current Meds: Current Medications Lactated Ringer's (Ringers, Lactated) 1,000 mls @ 125 mls/hr IV ASDIRECTED [facility] Last Admin: 01/02/19 08:37 Dose: 125 mls/hr
[2019-01-02] MEDS ORDERED: fentaNYL 100 MCG/2 ML SDV ONE (08:59)
[2019-01-02] MEDS ORDERED: Propofol 200 MG/20 ML SDV ONE (08:59)
[2019-01-02] MEDS ORDERED: Midazolam 1 MG/ML 2 ML SDV ONE (08:59)
[2019-01-02] MEDS ORDERED: Ondansetron 4 MG/2 ML SDV ONE (09:01)
[2019-01-02] MEDS ORDERED: Glycopyrrolate 0.2 MG/ML SDV ONE (09:01)
[2019-01-02] MEDS ORDERED: Lidocaine 2% 5 ML SDV ONE (09:01)
[2019-01-02] MEDS ORDERED: Sodium Chloride 0.9% 1,000 ML IV SCH (09:15)
[2019-01-02] MEDS ORDERED: Bupivacaine 0.5% 10 ML SDV ONE (09:48)
[2019-01-02] MEDS ORDERED: Lactated Ringers 1,000 ML IV SCH (10:45)
[2019-01-02] MEDS ORDERED: Ibuprofen 400 MG Tab PO PRN (10:45)
--- NOTE | 2019-01-02 10:47 | PCM.OPNOTE ---
- General Post-Op/Procedure Note Date of Surgery/Procedure: 01/02/19 Operative Procedure(s): Removal Henrry dialysis catheter Pre Op Diagnosis: Chronic renal failure. Failed renal transplant. Request for dialysis catheter removal. Post-Op Diagnosis: Same Anesthesia Technique: General LMA (ASA III) Primary Surgeon: Nik Hernandez Sports Instructor: Tiffanie Ruiz Fluid Replacement, Intraop: 400 EBL in mLs: 5 Condition: Good Free Text/Narrative:: DICTATION 739509 CPT CODE 46067
--- NOTE | 2019-01-02 11:03 | PCM.POSTAN ---
POST ANESTHESIA ASSESSMENT - MENTAL STATUS Mental Status: Alert, Oriented - VITAL SIGNS Vital Signs: Last Vital Signs Temp 36.4 C 01/02/19 10:36 Pulse 94 01/02/19 10:52 Resp 15 01/02/19 10:52 BP 126/93 H 01/02/19 10:52 Pulse Ox 97 01/02/19 10:52 - RESPIRATORY Respiratory Status: Respiratory Rate WNL, Airway Patent, O2 Saturation Stable - CARDIOVASCULAR CV Status: Pulse Rate WNL, Blood Pressure Stable - GASTROINTESTINAL GI Status: No Symptoms - PAIN Pain Score: 0 - POST OP HYDRATION Hydration Status: Adequate & Stable - OBSERVATIONS Free Text/Narrative:: no anesthesia problems
--- NOTE | 2019-01-02 11:05 | OR ---
SURGEON: Nik Hernandez M.D. DATE OF PROCEDURE: 01/02/2019 OPERATION PERFORMED: Removal of Henrry dialysis catheter. PRIMARY SURGEON: Nik Hernandez MD. VIDEO PRODUCTION COORDINATOR: records management assistant: Dr. Ruiz, PGY2. ANESTHESIA: General LMA. ASA CLASSIFICATION: III. PREOPERATIVE DIAGNOSES: Chronic renal failure, failed renal transplant, desire for Henrry dialysis catheter removal. POSTOPERATIVE DIAGNOSES: Chronic renal failure, failed renal transplant, desire for Henrry dialysis catheter removal. ESTIMATED BLOOD LOSS: 5 mL. INTRAOPERATIVE FLUID REPLACEMENT: 400 mL of crystalloid. DESCRIPTION OF PROCEDURE: The patient was taken to the operating room and placed on the operating table in the supine position. Time-out was called for appropriate identification of the patient and procedure. Following satisfactory attainment of general anesthesia with placement of an LMA, the right chest was prepped with DuraPrep solution and sterile drapes were applied. Skin incision was marked out over the catheter. The skin was then infiltrated with 1% Xylocaine and 0.5% Marcaine solution. A skin incision was made and deepened through the subcutaneous tissue obtaining hemostasis with the use of electrocautery. The catheter was identified and the cuff mobilized. The catheter was then divided and removed in two pieces. Pressure was held at the right internal jugular site for 2 minutes. There was no bleeding noted. The incision was then inspected for hemostasis and small bleeding sites were electrocoagulated. Subcutaneous tissue was reapproximated with 3-0 Vicryl. Skin was reapproximated with subcuticular 4-0 Monocryl. Steri- Strips were placed over the skin, which was then dressed with a sterile Tegaderm pad. Sponge, needle, and instrument counts were all correct. Following emergence from anesthesia and extubation, the patient was taken to recovery room in stable condition. GUERRERO / ANTHONY /[id number]
--- NOTE | 2019-01-02 11:28 | PCM48HPAN ---
Post Anesthesia Note - EVALUATION WITHIN 48HRS OF ANESTHETIC Vital Signs in Normal Range: Yes Patient Participated in Evaluation: Yes Respiratory Function Stable: Yes Airway Patent: Yes Cardiovascular Function Stable: Yes Hydration Status Stable: Yes Pain Control Satisfactory: Yes Nausea and Vomiting Control Satisfactory: Yes Mental Status Recovered: Yes Vital Signs: Last Vital Signs Temp 36.4 C 01/02/19 10:36 Pulse 94 01/02/19 10:52 Resp 15 01/02/19 10:52 BP 126/93 H 01/02/19 10:52 Pulse Ox 97 01/02/19 10:52 - COMMENTS/OBSERVATIONS Free Text/Narrative:: No anesthesia problems
[2019-01-02 12:56] VITALS: BP 135/82; PULSE 89
== END 2019-01-02 11:42 | disposition home or self-care (01) ==
LOC: MW.SDS 07:51
PROVIDERS: ATTEND Surgery
DX: N18.9 Chronic kidney disease, unspecified (principal); T86.12 Kidney transplant failure; K21.9 Gastro-esophageal reflux disease without esophagitis; F41.9 Anxiety disorder, unspecified; F32.9 Major depressive disorder, single episode, unspecified; E66.9 Obesity, unspecified; Z88.5 Allergy status to narcotic agent; Z79.82 Long term (current) use of aspirin; Z79.899 Other long term (current) drug therapy; Z68.36 Body mass index [BMI] 36.0-36.9, adult
CPT/HCPCS: 36589; J2001; J2250; J2405; J2704; J3010; J3490; J7120; 00400; 88300

== ENCOUNTER 2019-03-14 11:22 | Emergency (ER) | payer BC, MEDICARE ==
[2019-03-14] MEDS ORDERED: Ketorolac 30 MG/ML SDV IVPUSH ONE (11:54)
[2019-03-14] MEDS ORDERED: Sodium Chloride 0.9% 1,000 ML IV ONE (11:54)
[2019-03-14] MEDS ORDERED: Ondansetron 4 MG/2 ML SDV IVPUSH ONE (11:54)
[2019-03-14] MEDS ORDERED: diphenhydrAMINE 50 MG/ML SDV IVPUSH ONE (11:58)
[2019-03-14] MEDS ORDERED: LORazepam 2 MG/ML SDV IVPUSH ONE (11:58)
--- NOTE | 2019-03-14 12:47 | EDM.PDOC ---
ED HPI GENERAL MEDICAL PROBLEM - General Chief Complaint: Headache Stated Complaint: MIGRAINE Time Seen by Provider: 03/14/19 12:47 Source of Information: Reports: Patient - History of Present Illness INITIAL COMMENTS - FREE TEXT/NARRATIVE: HISTORY AND PHYSICAL: History of present illness: [With end-stage renal disease has had migraine headaches off and on for the last 2 months, he presents postdialysis with headache/cephalgia nausea and light sensitivity fever nausea vomiting chills sweats at current Has morphine and codeine listed as allergy however not true allergy causes nausea and vomiting mainly side effect he has taken it safely in the past and with minimal benefit from all prior modalities he is willing to take morphine at this time ] Review of systems: As per history of present illness and below otherwise all systems reviewed and negative. Past medical history: As per history of present illness and as reviewed below otherwise noncontributory. Surgical history: As per history of present illness and as reviewed below otherwise noncontributory. Social history: No reported history of drug or alcohol abuse. Family history: As per history of present illness and as reviewed below otherwise noncontributory. Physical exam: HEENT: Atraumatic, normocephalic, pupils reactive, negative for conjunctival pallor or scleral icterus, mucous membranes moist, throat clear, neck supple, nontender, trachea midline. Lungs: Clear to auscultation, breath sounds equal bilaterally, chest nontender. Heart: S1S2, regular, negative for clicks, rubs, or JVD. Abdomen: Soft, nondistended, nontender. Negative for masses or hepatosplenomegaly. Negative for costovertebral tenderness. Pelvis: Stable nontender. Genitourinary: Deferred. Rectal: Deferred. Extremities: Atraumatic, negative for cords or calf pain. Neurovascular unremarkable. Neuro: Awake, alert, oriented. Cranial nerves II through XII unremarkable. Cerebellum unremarkable. Motor and sensory unremarkable throughout. Exam nonfocal. Diagnostics: [CBC CMP CT head no contrast ] Therapeutics: [Saline Zofran Ativan Benadryl] Discontinued not provided due to end-stage renal disease Morphine 2 mg IV provided no reaction no nausea no vomiting Fioricet Follow-up with primary care in 2 weeks sooner as needed Impression: [Headache/migraine symptoms-improved End-stage renal disease on dialysis ] Definitive disposition and diagnosis as appropriate pending reevaluation and review of above. Headache Pain Score (Numeric/FACES): 10 - Related Data Allergies Allergy/AdvReac Type Severity Reaction Status Date / Time codeine Allergy Nausea and Verified 03/14/19 11:37 Vomiting morphine Allergy Nausea and Verified 03/14/19 11:37 Vomiting Home Meds: Home Meds Aspirin [[place] Aspirin EC] 1 tab PO BEDTIME 07/22/17 [History] Folic Acid 1 mg PO DAILY 07/22/17 [History] Multivitamin [Multivitamins] 1 tab PO BEDTIME 07/22/17 [History] Sevelamer Carbonate [Renvela] 3 tab PO TIDMEALS 07/22/17 [History] predniSONE [Prednisone] 5 mg PO DAILY 07/22/17 [History] Calcium Acetate [Calphron] 667 mg PO TIDMEALS 12/30/18 [History] Ondansetron [Ondansetron ODT] 4 mg PO DAILY 12/30/18 [History] Sertraline HCl 100 mg PO DAILY 12/30/18 [History] Gabapentin [Neurontin] 100 cap PO BEDTIME 03/14/19 [History] amLODIPine [Norvasc] 5 mg PO DAILY 03/14/19 [History] Past Medical History HEENT History: Reports: Other (See Below) Other HEENT History: uses reading glasses Respiratory History: Reports: Sleep Apnea Other Respiratory History: just diagnosed with sleep apnea- has not received CPAP yet Gastrointestinal History: Reports: GERD, PUD Other Gastrointestinal History: has Umbilical Hernia Genitourinary History: Reports: Dialysis, Renal Disease Other Genitourinary History: 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- previous peritoneal dialysis catheter insertion and removal, A-V fistula on left arm matured Neurological History: Reports: Other (See Below) Other Neuro History: hx of motion sickness Psychiatric History: Reports: Anxiety, Depression Endocrine/Metabolic History: Reports: Obesity/BMI 30+ Hematologic History: Reports: Anticoagulation Therapy Other Hematologic History: takes heparin weekly Immunologic History: Reports: Solid Organ Transplant - Infectious Disease History Infectious Disease History: Reports: Chicken Pox - Past Surgical History Head Surgeries/Procedures: Reports: None Cardiovascular Surgical History: Reports: Vascular Surgery Other Cardiovascular Surgeries/Procedures: AV fistula left arm, Port-a-Cath GI Surgical History: Reports: Colonoscopy Male Surgical History: Reports: Nephrectomy, Other (See Below) Other Male Surgeries/Procedures: hx of kidney transplant- "blood vessel kinked off and the kidney " post-op Social & Family History - Family History Family Medical History: Noncontributory - Tobacco Use Smoking Status *Q: Never Smoker - Caffeine Use Caffeine Use: Reports: Coffee, Energy Drinks - Recreational Drug Use Recreational Drug Use: No - Living Situation & Occupation Living situation: Reports: Occupation: Disabled ED ROS GENERAL - Review of Systems Review Of Systems: See Below ED EXAM, GENERAL - Physical Exam Exam: See Below Course - Vital Signs Last Recorded V/S: Last Vital Signs Temp Pulse 88 03/14/19 13:40 Resp 16 03/14/19 13:40 BP 142/65 H 03/14/19 13:40 Pulse Ox 98 03/14/19 13:40 - Orders/Labs/Meds Labs: Laboratory Tests 03/14/19 03/14/19 Range/Units 11:40 11:40 WBC 8.41 (4.0-11.0) K/uL RBC 3.51 L (4.50-5.90) M/uL Hgb 11.0 L (13.0-17.0) g/dL Hct 33.0 L (38.0-50.0) % MCV 94.0 (80.0-98.0) fL MCH 31.3 (27.0-32.0) pg MCHC 33.3 (31.0-37.0) g/dL RDW Std Deviation 48.2 (28.0-62.0) fl RDW Coeff of Melissa 14 (11.0-15.0) % Plt Count 256 (150-400) K/uL MPV 10.00 (7.40-12.00) fL Neut % (Auto) 59.0 (48.0-80.0) % Lymph % (Auto) 27.0 (16.0-40.0) % [place] % (Auto) 9.8 (0.0-15.0) % Eos % (Auto) 3.6 (0.0-7.0) % Baso % (Auto) 0.6 (0.0-1.5) % Neut # (Auto) 5.0 (1.4-5.7) K/uL Lymph # (Auto) 2.3 (0.6-2.4) K/uL [place] # (Auto) 0.8 (0.0-0.8) K/uL Eos # (Auto) 0.3 (0.0-0.7) K/uL Baso # (Auto) 0.1 (0.0-0.1) K/uL Nucleated RBC % 0.0 /100WBC Nucleated RBCs # 0 K/uL Sodium 140 (136-148) mmol/L Potassium 4.0 (3.5-5.1) mmol/L Chloride 98 (98-107) mmol/L Carbon Dioxide 29.8 (21.0-32.0) mmol/L BUN 26 H (7.0-18.0) mg/dL Creatinine 5.3 H (0.8-1.3) mg/dL Est Cr Clr Drug Dosing 17.60 mL/min Estimated GFR (MDRD) 11.8 ml/min Glucose 85 (74-106) mg/dL Calcium 9.3 (8.5-10.1) mg/dL Total Bilirubin 0.3 (0.2-1.0) mg/dL AST 31 (15-37) IU/L ALT 53 (14-63) IU/L Alkaline Phosphatase 71 (46-116) U/L Total Protein 7.9 (6.4-8.2) g/dL Albumin 3.9 (3.4-5.0) g/dL Globulin 4.0 (2.6-4.0) g/dL Albumin/Globulin Ratio 1.0 (0.9-1.6) Meds: Medications Discontinued Medications Generic Name Dose Route Start Last Admin Trade Name Freq PRN Reason Stop Dose Admin Diphenhydramine HCl 50 mg 03/14/19 11:58 03/14/19 12:17 Benadryl IVPUSH 03/14/19 11:59 50 mg ONETIME ONE Administration Sodium Chloride 1,000 mls @ 999 mls/hr 03/14/19 11:54 03/14/19 12:11 Normal Saline IV 03/14/19 12:54 999 mls/hr STAT ONE Administration Ketorolac Tromethamine 30 mg 03/14/19 11:54 03/14/19 12:23 Toradol IVPUSH 03/14/19 11:55 Not Given ONETIME ONE Lorazepam 1 mg 03/14/19 11:58 03/14/19 12:20 Ativan IVPUSH 03/14/19 11:59 1 mg ONETIME ONE Administration Morphine Sulfate 2 mg 03/14/19 14:28 Morphine IVPUSH 03/14/19 14:29 ONETIME ONE Ondansetron HCl 8 mg 03/14/19 11:54 03/14/19 12:11 Zofran IVPUSH 03/14/19 11:55 8 mg ONETIME ONE Administration Tramadol HCl 100 mg 03/14/19 13:13 03/14/19 13:44 Ultram PO 03/14/19 13:14 100 mg ONETIME ONE Administration Departure - Departure Time of Disposition: 14:57 Disposition: Home, Self-Care 01 Condition: Good Clinical Impression: Migraine - Discharge Information Referrals: Guy Nunez MD [Primary Care Provider] - Forms: ED Department Discharge Additional Instructions: Medication as prescribed Return if symptoms persist or worsen No driving or alcohol on medication post ER or with the prescription medication Fioricet that I am providing With primary care in 2 weeks sooner as needed Continue dialysis as scheduled [address] [address] The following information is given to patients seen in the emergency department who are being discharged to home. This information is to outline your options for follow-up care. We provide all patients seen in our emergency department with a follow-up referral. The need for follow-up, as well as the timing and circumstances, are variable depending upon the specifics of your emergency department visit. If you don't have a primary care physician on staff, we will provide you with a referral. We always advise you to contact your personal physician following an emergency department visit to inform them of the circumstance of the visit and for follow-up with them and/or the need for any referrals to a consulting specialist. The emergency department will also refer you to a specialist when appropriate. This referral assures that you have the opportunity for follow-up care with a specialist. All of these measure are taken in an effort to provide you with optimal care, which includes your follow-up. Under all circumstances we always encourage you to contact your private physician who remains a resource for coordinating your care. When calling for follow-up care, please make the office aware that this follow-up is from your recent emergency room visit. If for any reason you are refused follow-up, please contact the [facility] emergency department at and asked to speak to the emergency department charge nurse. Sepsis Event Note - Evaluation Sepsis Screening Result: No Definite Risk - Focused Exam Vital Signs: Vital Signs Pulse Resp BP Pulse Ox 03/14/19 13:40 88 16 142/65 H 98 03/14/19 12:43 99 20 148/85 H 100 03/14/19 11:38 22 H Date Exam was Performed: 03/14/19 Time Exam was Performed: 14:30
--- NOTE | 2019-03-14 12:52 | CT ---
Head CT Technique: Multiple axial sections through the brain were obtained. Intravenous contrast was not utilized. Comparison: Prior head CT study of 12/13/18. Findings: Ventricles along with basal cisterns and sulci over the convexities appear within normal limits for the patient's age. No abnormal parenchymal densities are seen. No evidence of intracranial hemorrhage. No midline shift or mass effect is seen. Bone window settings were reviewed. Visualized paranasal sinuses show nothing acute. Mastoid sinuses show nothing acute. No acute calvarial abnormality is seen. Impression: 1. Nothing acute is appreciated on noncontrast head CT exam. Diagnostic code #1 This report was dictated in [place] Standard Time
[2019-03-14 13:12] LABS: CARBON DIOXIDE,CO2 29.8 mmol/L (21.0-32.0)
[2019-03-14] MEDS ORDERED: traMADol 50 MG Tab PO ONE (13:13)
[2019-03-14] MEDS ORDERED: Morphine 2 MG/ML Syringe IVPUSH ONE (14:28)
[2019-03-14 15:17] VITALS: BP 141/86; PULSE 76
== END 2019-03-14 15:23 | disposition home or self-care (01) ==
LOC: MW.ED 11:22
DX: G43.909 Migraine, unspecified, not intractable, without status migrainosus (principal); N18.6 End stage renal disease; F41.9 Anxiety disorder, unspecified; F32.9 Major depressive disorder, single episode, unspecified; E66.9 Obesity, unspecified; Z99.2 Dependence on renal dialysis; Z79.899 Other long term (current) drug therapy; Z79.82 Long term (current) use of aspirin; Z88.5 Allergy status to narcotic agent
CPT/HCPCS: 36415; 70450; 80053; 85025; 96361; 96374; 96375; 99284; A9270; J1200; J2060; J2270; J2405; J7030

== ENCOUNTER 2019-04-18 19:05 | Emergency (ER) | payer BC, MEDICARE ==
--- NOTE | 2019-04-18 19:55 | EDM.PDOC ---
ED HPI GENERAL MEDICAL PROBLEM - General Chief Complaint: Respiratory Problem Stated Complaint: TROUBLE BREATHING Time Seen by Provider: 04/18/19 19:10 Source of Information: Reports: Patient - History of Present Illness INITIAL COMMENTS - FREE TEXT/NARRATIVE: The patient is a 43-year-old male end-stage renal disease patient on dialysis who presents for reported difficulty breathing. He states that for the past several days he has had a harsh cough, fevers, a lot of nasal congestion, his chest hurts when he coughs, generalized body aches and fatigue. The patient states that he saw his primary care physician and he was tested for the flu and it was negative. His primary care physician told him that he had a virus but he feels like his lungs are filling up with fluid. He went to dialysis and they told him that his lungs are clear and the even perform dialysis today and the patient had fluid taken off of him and he even weighs less than he normally does. They also told him that his lungs were clear but he is concerned that his lungs are filling up with fluid. - Related Data Allergies Allergy/AdvReac Type Severity Reaction Status Date / Time codeine Allergy Nausea and Verified 03/14/19 11:37 Vomiting morphine Allergy Nausea and Verified 03/14/19 11:37 Vomiting Home Meds: Home Meds Aspirin [[place] Aspirin EC] 1 tab PO BEDTIME 07/22/17 [History] Folic Acid 1 mg PO DAILY 07/22/17 [History] Multivitamin [Multivitamins] 1 tab PO BEDTIME 07/22/17 [History] Sevelamer Carbonate [Renvela] 3 tab PO TIDMEALS 07/22/17 [History] predniSONE [Prednisone] 5 mg PO DAILY 07/22/17 [History] Calcium Acetate [Calphron] 667 mg PO TIDMEALS 12/30/18 [History] Ondansetron [Ondansetron ODT] 4 mg PO DAILY 12/30/18 [History] Sertraline HCl 100 mg PO DAILY 12/30/18 [History] Gabapentin [Neurontin] 100 cap PO BEDTIME 03/14/19 [History] amLODIPine [Norvasc] 5 mg PO DAILY 03/14/19 [History] Past Medical History HEENT History: Reports: Other (See Below) Other HEENT History: uses reading glasses Respiratory History: Reports: Sleep Apnea Other Respiratory History: just diagnosed with sleep apnea- has not received CPAP yet Gastrointestinal History: Reports: GERD, PUD Other Gastrointestinal History: has Umbilical Hernia Genitourinary History: Reports: Dialysis, Renal Disease Other Genitourinary History: 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- previous peritoneal dialysis catheter insertion and removal, A-V fistula on left arm matured Neurological History: Reports: Other (See Below) Other Neuro History: hx of motion sickness Psychiatric History: Reports: Anxiety, Depression Endocrine/Metabolic History: Reports: Obesity/BMI 30+ Hematologic History: Reports: Anticoagulation Therapy Other Hematologic History: takes heparin weekly Immunologic History: Reports: Solid Organ Transplant - Infectious Disease History Infectious Disease History: Reports: Chicken Pox - Past Surgical History Head Surgeries/Procedures: Reports: None Cardiovascular Surgical History: Reports: Vascular Surgery Other Cardiovascular Surgeries/Procedures: AV fistula left arm, Port-a-Cath GI Surgical History: Reports: Colonoscopy Male Surgical History: Reports: Nephrectomy, Other (See Below) Other Male Surgeries/Procedures: hx of kidney transplant- "blood vessel kinked off and the kidney " post-op Social & Family History - Family History Family Medical History: Noncontributory - Tobacco Use Smoking Status *Q: Never Smoker - Caffeine Use Caffeine Use: Reports: None - Recreational Drug Use Recreational Drug Use: No - Living Situation & Occupation Living situation: Reports: Occupation: Disabled ED ROS GENERAL - Review of Systems Review Of Systems: See Below (Positive for fevers, positive for cough, positive for nasal congestion, positive for myalgias, positive for fatigue, positive for chest pain with cough, all other Positives and pertinent negatives as per HPI. All other pertinent systems were reviewed and are negative) ED EXAM, GENERAL - Physical Exam Exam: See Below Free Text/Narrative:: Constitutional: Nontoxic appearance, harsh, painful raspy cough, sounds nasally congested HEENT.: Normocephalic, Atraumatic, PERRL, EOMI, External ears are atraumatic, Oropharynx clear and moist without lesions or masses, nares are patent without epistaxis Neck: Normal range of motion, Trachea Midline, No stridor Respiratory.: No respiratory distress, No tachypnea, harsh raspy cough, lungs Clear to Auscultation bilaterally without wheezes, rales, or rhonchi Cardiovascular.: Mildly tachycardic rate and regular rhythm without murmurs, rubs, or gallops, good peripheral perfusion GI: Abdomen soft and non tender, obese Genital Urinary: Deferred Musculoskeletal: Good range of motion. All 4 extremities present and atraumatic , no edema Back: Full Range of Motion Skin: Warm, Dry, Color is ethnicity appropriate, No acute rash. Lymphatic: No lymphadenopathy noted Neurological: Alert, Awake and oriented x 3, No focal deficits noted appreciate , GCS 15 Psych: Affect, Judgement, mood normal Course - Vital Signs Text/Narrative:: While it is recognized that this patient does have significant medical problems , most notably secondary to his end-stage renal disease and the patient being on dialysis, all signs and symptoms points to a viral respiratory illness which is very common and rampant at this time. An ECG was performed prior to me entering the room which I do not feel is clinically necessary but I did look at it... ECG The ECG was read and interpreted by me. There are p waves before every QRS with a ventricular rate of 108. The HI, QRS, and QT intervals are all normal. [place] is normal. ST segments are baseline and the T wave morphology is normal. Final interpretation is a normal Sinus tachycardic rhythm and a normal ECG. I recognize that there is a slight tachycardia but the patient is coughing very hard and it sounds like a classic, viral bronchial cough. Chest x-ray is reviewed and interpreted by me -there are no pulmonary infiltrates, pleural effusions, pneumothorax, thoracic masses or any acute pathology. I talked to the patient in detail about his diagnosis and the patient will be given a prescription for Tessalon Perles to help decrease his symptoms but at this time there are no indications for further work-up and the patient is stable for discharge and close outpatient follow-up and return to the ER for any concerns. Last Recorded V/S: Last Vital Signs Temp 37.5 C 04/18/19 19:08 Pulse 105 H 04/18/19 20:15 Resp 19 04/18/19 20:15 BP 153/95 H 04/18/19 20:15 Pulse Ox 95 04/18/19 20:15 - Orders/Labs/Meds Orders: Active Orders 24 hr Category Date Time Status EKG 12 Lead [EKG Documentation Completion] [RC] STAT Care 04/18/19 19:51 Active Meds: Medications Discontinued Medications Generic Name Dose Route Start Last Admin Trade Name Freq PRN Reason Stop Dose Admin Benzonatate 200 mg 04/18/19 19:56 04/18/19 20:02 Carriesaldenisha Walsh PO 04/18/19 19:57 200 mg ONETIME ONE Administration Departure - Departure Time of Disposition: 19:54 Disposition: Home, Self-Care 01 Condition: Good Clinical Impression: Influenza-like syndrome - Discharge Information Instructions: Viral Illness, Adult, Viral Respiratory Infection Referrals: Guy Nunez MD [Primary Care Provider] - Forms: ED Department Discharge Care Plan Goals: The following information is given to patients seen in the emergency department who are being discharged to home. This information is to outline your options for follow-up care. We provide all patients seen in our emergency department with a follow-up referral. The need for follow-up, as well as the timing and circumstances, are variable depending upon the specifics of your emergency department visit. If you don't have a primary care physician on staff, we will provide you with a referral. We always advise you to contact your personal physician following an emergency department visit to inform them of the circumstance of the visit and for follow-up with them and/or the need for any referrals to a consulting specialist. The emergency department will also refer you to a specialist when appropriate. This referral assures that you have the opportunity for follow-up care with a specialist. All of these measure are taken in an effort to provide you with optimal care, which includes your follow-up. Under all circumstances we always encourage you to contact your private physician who remains a resource for coordinating your care. When calling for follow-up care, please make the office aware that this follow-up is from your recent emergency room visit. If for any reason you are refused follow-up, please contact the [facility] Emergency Department at and asked to speak to the emergency department charge nurse. [facility] Primary Care [address] [place] [id number] [facility] [address] [place] [id number] Sepsis Event Note - Evaluation Sepsis Screening Result: Possible Sepsis Risk - Focused Exam Vital Signs: Vital Signs Temp Pulse Resp BP Pulse Ox 04/18/19 20:15 105 H 19 153/95 H 95 04/18/19 19:45 108 H 18 141/93 H 97 04/18/19 19:08 37.5 C 104 H 22 H 187/112 H 95 Date Exam was Performed: 04/18/19 Time Exam was Performed: 20:25 - My Orders Last 24 Hours: My Active Orders 04/18/19 19:51 EKG 12 Lead [EKG Documentation Completion] [RC] STAT - Assessment/Plan Last 24 Hours: My Active Orders 04/18/19 19:51 EKG 12 Lead [EKG Documentation Completion] [RC] STAT
[2019-04-18] MEDS ORDERED: Benzonatate 100 MG Cap PO ONE (19:56)
--- NOTE | 2019-04-18 20:00 | CR ---
Chest: 2 views of the chest were obtained. Comparison: Prior chest x-ray of 12/13/18. Heart size and mediastinum are normal. Right sided central line has been removed in the interim from prior chest x-ray. Lungs are clear with no acute parenchymal change. Bony structures shows slight degenerative endplate spurring within the mid to lower thoracic spine. Impression: 1. Nothing acute is appreciated on 2 view chest x-ray. Diagnostic code #2 Study was dictated in [place] Standard Time
[2019-04-18 20:23] VITALS: BP 153/95; PULSE 105
== END 2019-04-18 20:25 | disposition home or self-care (01) ==
LOC: MW.ED 19:05
DX: J11.1 Influenza due to unidentified influenza virus with other respiratory manifestations (principal); Z88.5 Allergy status to narcotic agent; Z79.82 Long term (current) use of aspirin; Z79.899 Other long term (current) drug therapy
CPT/HCPCS: 71046; 93005; 99285; A9270

== ENCOUNTER 2019-10-24 18:01 | Emergency (ER) | payer MEDICARE, OTHER ==
--- NOTE | 2019-10-24 18:23 | EDM.PDOC ---
ED HPI GENERAL MEDICAL PROBLEM - General Chief Complaint: Fever Stated Complaint: CHILLS Time Seen by Provider: 10/24/19 18:05 - History of Present Illness INITIAL COMMENTS - FREE TEXT/NARRATIVE: History of present illness: [] Patient presents with body aches fever and a cough since this morning he is a dialysis patient began feeling worse at dialysis his vital signs are stable here he is afebrile but he wanted to be tested for COVID. He denies any exposures but he has been out and about and going to dialysis back and forth. He is not having shortness of breath his dialysis went well and he completed it. History of renal failure and hypertension. Review of systems: As per history of present illness and below otherwise all systems reviewed and negative. Past medical history: As per history of present illness and as reviewed below otherwise noncontributory. Surgical history: As per history of present illness and as reviewed below otherwise noncontributory. Social history: No reported history of drug or alcohol abuse. Family history: As per history of present illness and as reviewed below otherwise noncontributory. Physical exam: HEENT: Atraumatic, normocephalic, pupils reactive, negative for conjunctival pallor or scleral icterus, mucous membranes moist, throat clear, neck supple, nontender, trachea midline. Congestion and clear rhinorrhea Lungs: Clear to auscultation, breath sounds equal bilaterally, chest nontender. Heart: S1S2, regular, negative for clicks, rubs, or JVD. Abdomen: Soft, nondistended, nontender. Negative for masses or hepatosplenomegaly. Negative for costovertebral tenderness. Pelvis: Stable nontender. Genitourinary: Deferred. Rectal: Deferred. Extremities: Atraumatic, negative for cords or calf pain. Neurovascular unremarkable. Neuro: Awake, alert, oriented. Cranial nerves II through XII unremarkable. Cerebellum unremarkable. Motor and sensory unremarkable throughout. Exam nonfocal. Diagnostics: [] Therapeutics: [] Impression: Upper respiratory infection [] Plan: COVID test [] Definitive disposition and diagnosis as appropriate pending reevaluation and review of above. - Related Data Allergies Allergy/AdvReac Type Severity Reaction Status Date / Time codeine Allergy Nausea and Verified 10/24/19 18:05 Vomiting morphine Allergy Nausea and Verified 10/24/19 18:05 Vomiting Home Meds: Home Meds Aspirin [[place] Aspirin EC] 1 tab PO BEDTIME 07/22/17 [History] Folic Acid 1 mg PO DAILY 07/22/17 [History] Multivitamin [Multivitamins] 1 tab PO BEDTIME 07/22/17 [History] Sevelamer Carbonate [Renvela] 3 tab PO TIDMEALS 07/22/17 [History] predniSONE [Prednisone] 5 mg PO DAILY 07/22/17 [History] Sertraline HCl 100 mg PO DAILY 12/30/18 [History] Gabapentin [Neurontin] 100 cap PO BEDTIME 03/14/19 [History] amLODIPine [Norvasc] 5 mg PO DAILY 03/14/19 [History] Past Medical History HEENT History: Reports: Other (See Below) Other HEENT History: uses reading glasses Respiratory History: Reports: Sleep Apnea Other Respiratory History: just diagnosed with sleep apnea- has not received CPAP yet Gastrointestinal History: Reports: GERD, PUD Other Gastrointestinal History: has Umbilical Hernia Genitourinary History: Reports: Dialysis, Renal Disease Other Genitourinary History: 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- previous peritoneal dialysis catheter insertion and removal, A-V fistula on left arm matured Neurological History: Reports: Other (See Below) Other Neuro History: hx of motion sickness Psychiatric History: Reports: Anxiety, Depression Endocrine/Metabolic History: Reports: Obesity/BMI 30+ Hematologic History: Reports: Anticoagulation Therapy Other Hematologic History: takes heparin weekly Immunologic History: Reports: Solid Organ Transplant - Infectious Disease History Infectious Disease History: Reports: None - Past Surgical History Head Surgeries/Procedures: Reports: None Cardiovascular Surgical History: Reports: Vascular Surgery Other Cardiovascular Surgeries/Procedures: AV fistula left arm, Port-a-Cath GI Surgical History: Reports: Colonoscopy Male Surgical History: Reports: Nephrectomy, Other (See Below) Other Male Surgeries/Procedures: hx of kidney transplant- "blood vessel kinked off and the kidney " post-op Social & Family History - Family History Family Medical History: Noncontributory - Tobacco Use Smoking Status *Q: Never Smoker - Caffeine Use Caffeine Use: Reports: None - Living Situation & Occupation Living situation: Reports: Occupation: Disabled ED ROS GENERAL - Review of Systems Review Of Systems: See Below ED EXAM, GENERAL - Physical Exam Exam: See Below Course - Vital Signs Text/Narrative:: Being a dialysis patient I am concerned about the complexity of his subjective fever and cough I recommend a work-up however in the ED he is afebrile with normal oxygen saturations and vital signs. He does not want anything but a COVID test checked right now. Patient is positive for COVID his vital signs are stable no respiratory distress to be discharged home with instructions to follow-up with primary care return to the ED only for respiratory distress. Last Recorded V/S: Last Vital Signs Temp 37.4 C 10/24/19 18:07 Pulse 97 10/24/19 18:07 Resp 20 10/24/19 18:07 BP 116/78 10/24/19 18:07 Pulse Ox 97 10/24/19 18:07 - Orders/Labs/Meds Labs: Laboratory Tests 10/24/19 Range/Units 18:20 COVID-19 (BERNARDO) POSITIVE H (NEGATIVE) Departure - Departure Time of Disposition: 18:54 Disposition: Home, Self-Care 01 Condition: Good Clinical Impression: COVID-19 - Discharge Information *PRESCRIPTION DRUG MONITORING PROGRAM REVIEWED*: Not Applicable *COPY OF PRESCRIPTION DRUG MONITORING REPORT IN PATIENT HARSHA: Not Applicable Instructions: COVID-19, Prevent the Spread of COVID-19 if You Are Sick - [facility] Referrals: PCP,None [Primary Care Provider] - Forms: ED Department Discharge Additional Instructions: The following information is given to patients seen in the emergency department who are being discharged to home. This information is to outline your options for follow-up care. We provide all patients seen in our emergency department with a follow-up referral. The need for follow-up, as well as the timing and circumstances, are variable depending upon the specifics of your emergency department visit. If you don't have a primary care physician on staff, we will provide you with a referral. We always advise you to contact your personal physician following an emergency department visit to inform them of the circumstance of the visit and for follow-up with them and/or the need for any referrals to a consulting specialist. The emergency department will also refer you to a specialist when appropriate. This referral assures that you have the opportunity for follow-up care with a specialist. All of these measure are taken in an effort to provide you with optimal care, which includes your follow-up. Under all circumstances we always encourage you to contact your private physician who remains a resource for coordinating your care. When calling for follow-up care, please make the office aware that this follow-up is from your recent emergency room visit. If for any reason you are refused follow-up, please contact the [facility] Emergency Department at and asked to speak to the emergency department charge nurse. Sepsis Event Note (ED) - Evaluation Sepsis Screening Result: Possible Sepsis Risk - Focused Exam Vital Signs: Vital Signs Temp Pulse Resp BP Pulse Ox 10/24/19 18:07 37.4 C 97 20 116/78 97
[2019-10-24 19:04] VITALS: BP 132/92; PULSE 100
== END 2019-10-24 19:05 | disposition home or self-care (01) ==
LOC: MW.ED 18:01
DX: U07.1 COVID-19 (principal); J06.9 Acute upper respiratory infection, unspecified; F41.9 Anxiety disorder, unspecified; F32.9 Major depressive disorder, single episode, unspecified; E66.9 Obesity, unspecified; Z68.36 Body mass index [BMI] 36.0-36.9, adult; Z88.5 Allergy status to narcotic agent; Z79.899 Other long term (current) drug therapy
CPT/HCPCS: 99283; U0002

== ENCOUNTER 2020-04-23 18:47 | Emergency (ER) | payer MEDICARE ==
[2020-04-23 19:37] LABS: CARBON DIOXIDE,CO2 25.1 mmol/L (21.0-32.0); POTASSIUM,K 4.5 mmol/L (3.5-5.1)
--- NOTE | 2020-04-23 20:13 | CR ---
Indication: Missed hemodialysis, evaluate for fluid overload Technique: Chest 1 view Comparison: April 18, 2019 Findings/Impression: Cardiovascular and mediastinum: Heart size and vasculature are normal in caliber and appearance. Mediastinum is within normal limits. Lungs and pleural space: Lungs are clear. No sign of infiltrate or mass. No sign of pleural effusion. No pneumothorax. Bones and soft tissues: No significant findings. Dictated by Makayla Whitt MD @ Apr 23 2020 8:03PM Signed by Dr. Makayla Whitt @ Apr 23 2020 8:11PM
--- NOTE | 2020-04-23 20:41 | EDM.PDOC ---
ED HPI GENERAL MEDICAL PROBLEM - General Chief Complaint: General Stated Complaint: MISSED DIALYSIS, NOT FEELING WELL Time Seen by Provider: 04/23/20 18:58 - History of Present Illness INITIAL COMMENTS - FREE TEXT/NARRATIVE: CHIEF COMPLAINT(S): Missed hemodialysis HISTORY OF PRESENT ILLNESS: This is a 44-year-old man and with a past medical history of end-stage renal disease on hemodialysis who comes to the emergency department with a chief complaint of missed hemodialysis. The patient states that he had gastric sleeve last Wednesday and received hemodialysis at that time. He states that he followed up on approximately 4 days ago for hemodialysis and had a scheduled hemodialysis appointment however he got bumped until tomorrow. He states that he is not experiencing any chest pain, shortness of breath, vomiting but feels fatigued. He denies any other symptoms. He states that he still does produce urine and is on a kidney transplant list. He is not on any rejection medications as he has had a kidney transplant in the past. He states from a surgical standpoint he is doing well without any pain and has not been breaking his diet after gastric sleeve. REVIEW OF SYSTEMS: Constitutional: Positive for fatigue. Denies fever, chills. Eyes: Denies eye pain Ears, Nose, Mouth, & Throat: Denies earache Cardiovascular: Denies chest pain Respiratory: Denies shortness of breath Gastrointestinal: Denies Nausea, vomiting, diarrhea, hematochezia. Genitourinary: Denies hematuria Skin:Denies a rash MSK: Denies joint pain Neurological: Denies blurred vision Psychiatric: Denies depression PAST MEDICAL HISTORY: As per history of present illness and as reviewed below otherwise noncontributory. SURGICAL HISTORY: As per history of present illness and as reviewed below otherwise noncontributory. SOCIAL HISTORY: As per history of present illness and as reviewed below otherwise noncontributory. FAMILY HISTORY: As per history of present illness and as reviewed below otherwise noncontributory. EXAMINATION OF ORGAN SYSTEMS/BODY AREAS: Constitutional: Blood pressure is 140/75, heart rate 64, respiratory rate 20 with an oxygen saturation 98% on room air. Temperature 36.2 General: Overall well-appearing man who is in no acute distress Psychiatric: Appropriate mood and affect. Eyes: No scleral icterus or conjunctival erythema ENMT: Moist mucous membranes. No pharyngeal erythema Cardiovascular: Regular, rate, and rhythm. No gallops, murmurs, or rubs. Bilateral upper extremity pulses symmetric and intact. No peripheral edema. No JVD. Left upper extremity AV fistula with palpable thrill Respiratory: Lungs clear to auscultation bilaterally. No wheezes, rales, or rhonchi. Gastrointestinal: Soft, non-tender, non-distended. Normoactive bowel sounds Genitourinary: No suprapubic tenderness Musculoskeletal: Normal range of motion. Skin: No lesions or abrasions. Neurological: AOx4. CN grossly intact. Strength 5/5 in bilateral upper and lower extremity. Sensation is intact bilaterally in upper and lower extremity. Gait appears normal. MEDICAL DECISION MAKING AND COURSE IN THE ED WITH INTERPRETATION/REVIEW OF DIAGNOSTIC STUDIES: This is a 44-year-old man with a past medical history of end-stage renal disease who comes to the emergency department with missed hemodialysis appointment who appears fatigued who has normal vital signs is not hypertensive. Will obtain an EKG to evaluate for hyperkalemia. EKG did not reveal any peaked T waves or acute signs of ischemia. Will obtain CBC, BMP, magnesium and a chest x-ray. We will evaluate for any indication for emergent hemodialysis. Laboratory: CBC reveals a normocytic anemia with a hemoglobin of 11.2 and hematocrit of 33.1. BMP reveals hyper bow chloremia at 97, uremia with a BUN of 94 and a creatinine of 17.1. Hyperglycemia at 108 and magnesium of 2.6. Time: 1907 Twelve-lead EKG interpreted by myself. Normal sinus rhythm at a rate of 61beats per minute. Normal axis. WI interval is 151ms. QRS duration is 103ms. ST s egments are normal without elevations or depressions. No T wave inversions or peak T waves no Q waves present. Hypertrophy not noted. Prior EKG did not reveal any changes however there was PVCs on prior EKG dated 12/13/2018 . Interpretation: Normal sinus rhythm The radiological images were viewed by myself along with reading the report from the radiologist. Chest x-ray does not reveal any acute cardiopulmonary process and no evidence of fluid overload. After labs given the uremia I did contact [facility] in [place] and spoke with pipe fitter welding Dr. Kwong and given that the patient is not hyperkalemic, not hypertensive with no altered mentation with no signs of fluid overload he does not recommend transfer for hemodialysis. He states that his hemodialysis appointment is adequate. There is no indication at this time for urgent or emergent hemodialysis I did discuss results with the patient. I discussed with the patient that he should keep his appointment tomorrow. He was amenable to discharge at this time and had no further questions. He was given strict return precautions. DISPOSITION: The patient was discharged home in stable condition. The patient will follow up with his hemodialysis appointment tomorrow CONDITION: Fair PROCEDURES: None FINAL IMPRESSION(S)/DIAGNOSES: 1. Acute fatigue likely secondary to uremia 2. Acute uremia secondary to missed hemodialysis Aguilar Schaffer M.D. - Related Data Allergies Allergy/AdvReac Type Severity Reaction Status Date / Time codeine Allergy Nausea and Verified 04/23/20 19:00 Vomiting morphine Allergy Nausea and Verified 04/23/20 19:00 Vomiting Home Meds: Home Meds Aspirin [[place] Aspirin EC] 1 tab PO BEDTIME 07/22/17 [History] Folic Acid 1 mg PO DAILY 07/22/17 [History] Multivitamin [Multivitamins] 1 tab PO BEDTIME 07/22/17 [History] predniSONE [Prednisone] 5 mg PO DAILY 07/22/17 [History] Sertraline HCl 100 mg PO DAILY 12/30/18 [History] Gabapentin [Neurontin] 100 cap PO BEDTIME 03/14/19 [History] amLODIPine [Norvasc] 5 mg PO DAILY 03/14/19 [History] Past Medical History HEENT History: Reports: Other (See Below) Other HEENT History: uses reading glasses Respiratory History: Reports: Sleep Apnea Other Respiratory History: just diagnosed with sleep apnea- has not received CPAP yet Gastrointestinal History: Reports: GERD, PUD Other Gastrointestinal History: has Umbilical Hernia Genitourinary History: Reports: Dialysis, Renal Disease Other Genitourinary History: 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- previous peritoneal dialysis catheter insertion and removal, A-V fistula on left arm matured Neurological History: Reports: Other (See Below) Other Neuro History: hx of motion sickness Psychiatric History: Reports: Anxiety, Depression Endocrine/Metabolic History: Reports: Obesity/BMI 30+ Hematologic History: Reports: Anticoagulation Therapy Other Hematologic History: takes heparin weekly Immunologic History: Reports: Solid Organ Transplant - Infectious Disease History Infectious Disease History: Reports: None - Past Surgical History Head Surgeries/Procedures: Reports: None Cardiovascular Surgical History: Reports: Vascular Surgery Other Cardiovascular Surgeries/Procedures: AV fistula left arm, Port-a-Cath GI Surgical History: Reports: Bariatric Procedure, Colonoscopy Male Surgical History: Reports: Nephrectomy, Other (See Below) Other Male Surgeries/Procedures: hx of kidney transplant- "blood vessel kinked off and the kidney " post-op Social & Family History - Family History Family Medical History: No Pertinent Family History - Tobacco Use Tobacco Use Status *Q: Never Tobacco User - Caffeine Use Caffeine Use: Reports: None - Recreational Drug Use Recreational Drug Use: No - Living Situation & Occupation Living situation: Reports: Occupation: Disabled ED ROS GENERAL - Review of Systems Review Of Systems: See Below ED EXAM, GENERAL - Physical Exam Exam: See Below Course - Vital Signs Last Recorded V/S: Last Vital Signs Temp 36.2 C 04/23/20 19:04 Pulse 61 04/23/20 20:51 Resp 18 04/23/20 20:51 BP 126/79 04/23/20 20:51 Pulse Ox 98 04/23/20 20:51 - Orders/Labs/Meds Labs: Laboratory Tests 04/23/20 04/23/20 04/23/20 Range/Units 19:10 19:10 19:21 WBC 9.53 (4.0-11.0) K/uL RBC 3.37 L (4.50-5.90) M/uL Hgb 11.2 L (13.0-17.0) g/dL Hct 33.1 L (38.0-50.0) % MCV 98.2 H (80.0-98.0) fL MCH 33.2 H (27.0-32.0) pg MCHC 33.8 (31.0-37.0) g/dL RDW Std Deviation 49.3 (28.0-62.0) fl RDW Coeff of Melissa 14 (11.0-15.0) % Plt Count 214 (150-400) K/uL MPV 9.50 (7.40-12.00) fL Neut % (Auto) 80.5 H (48.0-80.0) % Lymph % (Auto) 13.5 L (16.0-40.0) % Christian % (Auto) 4.5 (0.0-15.0) % Eos % (Auto) 1.3 (0.0-7.0) % Baso % (Auto) 0.2 (0.0-1.5) % Neut # (Auto) 7.7 H (1.4-5.7) K/uL Lymph # (Auto) 1.3 (0.6-2.4) K/uL Christian # (Auto) 0.4 (0.0-0.8) K/uL Eos # (Auto) 0.1 (0.0-0.7) K/uL Baso # (Auto) 0.0 (0.0-0.1) K/uL Nucleated RBC % 0.0 /100WBC Nucleated RBCs # 0 K/uL Sodium 136 (136-148) mmol/L Potassium 4.5 (3.5-5.1) mmol/L Chloride 97 L (98-107) mmol/L Carbon Dioxide 25.1 (21.0-32.0) mmol/L BUN 93 H (7.0-18.0) mg/dL Creatinine 17.1 H (0.8-1.3) mg/dL Est Cr Clr Drug Dosing 5.22 mL/min Estimated GFR (MDRD) 3.0 ml/min Glucose 108 H (74-106) mg/dL POC Glucose 92 (60-110) mg/dL Calcium 9.7 (8.5-10.1) mg/dL Magnesium 2.6 H (1.8-2.4) mg/dL Departure - Departure Time of Disposition: 20:41 Disposition: Home, Self-Care 01 Condition: Fair Clinical Impression: Uremia - Discharge Information *PRESCRIPTION DRUG MONITORING PROGRAM REVIEWED*: No *COPY OF PRESCRIPTION DRUG MONITORING REPORT IN PATIENT HARSHA: No Instructions: Uremia Referrals: Guy Nunez MD [Primary Care Provider] - Forms: ED Department Discharge Additional Instructions: You were evaluated today on an emergent basis. As per our discussion although your BUN is elevated there is no need for emergent dialysis at this time. Given that you have an appointment tomorrow I do recommend that you keep the dialysis appointment. Please return for any new or worsening symptoms such as shortness of breath, confusion, or chest pain. [facility] - Primary Care [address] [place] [id number] [facility] [address] [place] [id number] The patient is informed of any results of their evaluation and diagnostic workup and all questions are answered. They are given discharge instructions and return precautions. The patient is stable for discharge. The patient states they understand and agree with the plan and that they will return if their symptoms get worse or if they have any new concerns. The following information is given to patients seen in the emergency department who are being discharged to home. This information is to outline your options for follow-up care. We provide all patients seen in our emergency department with a follow-up referral. The need for follow-up, as well as the timing and circumstances, are variable depending upon the specifics of your emergency department visit. If you don't have a primary care physician on staff, we will provide you with a referral. We always advise you to contact your personal physician following an emergency department visit to inform them of the circumstance of the visit and for follow-up with them and/or the need for any referrals to a consulting specialist. The emergency department will also refer you to a specialist when appropriate. This referral assures that you have the opportunity for follow-up care with a specialist. All of these measure are taken in an effort to provide you with optimal care, which includes your follow-up. Under all circumstances we always encourage you to contact your private physician who remains a resource for coordinating your care. When calling for follow-up care, please make the office aware that this follow-up is from your recent emergency room visit. If for any reason you are refused follow-up, please contact the [facility] Emergency Department at and asked to speak to the emergency department charge nurse. Sepsis Event Note (ED) - Evaluation Sepsis Screening Result: No Definite Risk - Focused Exam Vital Signs: Vital Signs Temp Pulse Resp BP Pulse Ox 04/23/20 20:51 61 18 126/79 98 04/23/20 20:23 70 110/73 100 04/23/20 20:08 61 117/75 100 04/23/20 19:53 63 124/79 98 04/23/20 19:38 63 122/66 100 04/23/20 19:04 36.2 C 64 20 140/75 98
[2020-04-23 20:57] VITALS: BP 126/79; PULSE 61
== END 2020-04-23 20:59 | disposition home or self-care (01) ==
LOC: MW.ED 18:47
DX: N18.6 End stage renal disease (principal); E66.9 Obesity, unspecified; Z79.82 Long term (current) use of aspirin; Z79.899 Other long term (current) drug therapy; Z91.15 Patient's noncompliance with renal dialysis
CPT/HCPCS: 36415; 71045; 71045-26; 80048; 82962; 83735; 85025; 93005; 93010; 99284; 99284-25

== ENCOUNTER 2020-05-03 23:59 | Emergency (ER) | payer MEDICARE ==
[2020-05-04] MEDS ORDERED: Aspirin 81 MG Tab.Chew PO ONE
--- NOTE | 2020-05-04 00:07 | EDM.PDOC ---
ED HPI GENERAL MEDICAL PROBLEM - General Chief Complaint: Chest Pain Stated Complaint: LOW BLOOD PRESSURE, CHEST HURTS Time Seen by Provider: 05/04/20 00:04 - History of Present Illness INITIAL COMMENTS - FREE TEXT/NARRATIVE: History of present illness: [] Finish dialysis at 4 PM today. At 5:30 PM he got chest pressure. He got short of breath. Chest pressure and so the breath persist. When EMS arrived at his home he had a blood pressure of 60. He had been dialyzed this afternoon. EMS gave him fluids and in route his pressure with 400 or so cc came up to 95. The patient still has some chest pressure. The patient has no history of coronary vessel disease. He does have end-stage renal disease. On a transplant list and has had stress test or treadmill at [facility] and says it was good. Review of systems: As per history of present illness and below otherwise all systems reviewed and negative. Came later and said the patient felt bad after dialysis. Then he felt weak. He ended up waking up at 9 PM with chest pain. His blood pressure was really low. When he was hydrated his symptoms went away and has been pain-free in the department. Was given a 500 mL fluid bolus that started in route Past medical history: As per history of present illness and as reviewed below otherwise noncontributory. Surgical history: As per history of present illness and as reviewed below otherwise noncontributory. Social history: No reported history of drug or alcohol abuse. Family history: As per history of present illness and as reviewed below otherwise noncontributory. Physical exam: Constitutional - well developed, well-nourished and in no acute distress HEENT - normocephalic, no evidence of trauma - external nose and mouth normal - no mass in neck and no JVD - mucosae moist EYES - full EOM, PERRL, no icterus - no evidence of inflammation, injection, or drainage Respiratory - no respiratory distress, equal bilateral expansion, lungs clear to auscultation and no abnormal lung sounds Cardiovascular - Regular Rhythm with S1 and S2 appreciated and no murmur, gallop or rub. GI - abdomen soft without distension or organomegaly - normal bowel sounds - no guard or rebound Musculoskeletal no gross deformity of long bones or joints - no tenderness, swelling or edema Neurologic - Alert and oriented times four - CN II-XII grossly intact - motor sensory and coordination symmetrically normal Psychiatric - appropriate mood and affect with normal thought content Hematologic - No petechiae or purpura - mucosa appropriate color and sclera not pale - normal nail bed color and refill Integument - no rash or evidence of trauma - normal turgor Diagnostics: [] Therapeutics: [] Impression: [] Plan: [] Definitive disposition and diagnosis as appropriate pending reevaluation and review of above. - Related Data Allergies Allergy/AdvReac Type Severity Reaction Status Date / Time codeine Allergy Nausea and Verified 05/04/20 00:05 Vomiting morphine Allergy Nausea and Verified 05/04/20 00:05 Vomiting Home Meds: Home Meds Aspirin [[place] Aspirin EC] 1 tab PO BEDTIME 07/22/17 [History] Folic Acid 1 mg PO DAILY 07/22/17 [History] Multivitamin [Multivitamins] 1 tab PO BEDTIME 07/22/17 [History] predniSONE [Prednisone] 5 mg PO DAILY 07/22/17 [History] Sertraline HCl 100 mg PO DAILY 12/30/18 [History] Gabapentin [Neurontin] 100 cap PO BEDTIME 03/14/19 [History] amLODIPine [Norvasc] 5 mg PO DAILY 03/14/19 [History] Ondansetron [Zofran ODT] 4 mg PO Q6H PRN #12 tab.dis 05/04/20 [Rx] Past Medical History HEENT History: Reports: Other (See Below) Other HEENT History: uses reading glasses Respiratory History: Reports: Sleep Apnea Other Respiratory History: just diagnosed with sleep apnea- has not received CPAP yet Gastrointestinal History: Reports: GERD, PUD Other Gastrointestinal History: has Umbilical Hernia Genitourinary History: Reports: Dialysis, Renal Disease Other Genitourinary History: 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- previous peritoneal dialysis catheter insertion and removal, A-V fistula on left arm matured Neurological History: Reports: Other (See Below) Other Neuro History: hx of motion sickness Psychiatric History: Reports: Anxiety, Depression Endocrine/Metabolic History: Reports: Obesity/BMI 30+ Hematologic History: Reports: Anticoagulation Therapy Other Hematologic History: takes heparin weekly Immunologic History: Reports: Solid Organ Transplant - Infectious Disease History Infectious Disease History: Reports: None - Past Surgical History Head Surgeries/Procedures: Reports: None Cardiovascular Surgical History: Reports: Vascular Surgery Other Cardiovascular Surgeries/Procedures: AV fistula left arm, Port-a-Cath GI Surgical History: Reports: Bariatric Procedure, Colonoscopy Male Surgical History: Reports: Nephrectomy, Other (See Below) Other Male Surgeries/Procedures: hx of kidney transplant- "blood vessel kinked off and the kidney " post-op Social & Family History - Family History Family Medical History: No Pertinent Family History - Caffeine Use Caffeine Use: Reports: None - Living Situation & Occupation Living situation: Reports: Occupation: Disabled ED ROS GENERAL - Review of Systems Review Of Systems: Comprehensive ROS is negative, except as noted in HPI. ED EXAM, GENERAL - Physical Exam Exam: See Below Free Text/Narrative:: Physical exam is in the HPI #1 Interpretation EKG Interpretation Comments: KG done at 12:01 AM sinus rhythm heart rate [address] and T normal impression normal EKG no prior for comparison Course - Vital Signs Last Recorded V/S: Last Vital Signs Temp 36.9 C 05/04/20 00:06 Pulse 62 05/04/20 02:00 Resp 18 05/04/20 02:00 BP 101/38 L 05/04/20 02:00 Pulse Ox 97 05/04/20 02:00 - Orders/Labs/Meds Orders: Active Orders 24 hr Category Date Time Status EKG 12 Lead [EKG Documentation Completion] [RC] STAT Care 05/04/20 00:06 Active Labs: Laboratory Tests 05/04/20 05/04/20 05/04/20 Range/Units 00:15 00:15 03:12 WBC 8.83 (4.0-11.0) K/uL RBC 3.65 L (4.50-5.90) M/uL Hgb 12.1 L (13.0-17.0) g/dL Hct 35.7 L (38.0-50.0) % MCV 97.8 (80.0-98.0) fL MCH 33.2 H (27.0-32.0) pg MCHC 33.9 (31.0-37.0) g/dL RDW Std Deviation 47.3 (28.0-62.0) fl RDW Coeff of Melissa 14 (11.0-15.0) % Plt Count 194 (150-400) K/uL MPV 9.00 (7.40-12.00) fL Neut % (Auto) 71.3 (48.0-80.0) % Lymph % (Auto) 18.7 (16.0-40.0) % [place] % (Auto) 8.2 (0.0-15.0) % Eos % (Auto) 1.5 (0.0-7.0) % Baso % (Auto) 0.3 (0.0-1.5) % Neut # (Auto) 6.3 H (1.4-5.7) K/uL Lymph # (Auto) 1.7 (0.6-2.4) K/uL [place] # (Auto) 0.7 (0.0-0.8) K/uL Eos # (Auto) 0.1 (0.0-0.7) K/uL Baso # (Auto) 0.0 (0.0-0.1) K/uL Sodium 133 L (136-148) mmol/L Potassium 4.7 (3.5-5.1) mmol/L Chloride 97 L (98-107) mmol/L Carbon Dioxide 26.7 (21.0-32.0) mmol/L BUN 23 H (7.0-18.0) mg/dL Creatinine 7.8 H (0.8-1.3) mg/dL Est Cr Clr Drug Dosing 11.45 mL/min Estimated GFR (MDRD) 7.5 ml/min Glucose 103 (74-106) mg/dL Calcium 9.0 (8.5-10.1) mg/dL Total Bilirubin 0.3 (0.2-1.0) mg/dL AST 14 L (15-37) IU/L ALT 21 (14-63) IU/L Alkaline Phosphatase 81 (46-116) U/L Troponin I < 0.050 < 0.050 (0.000-0.056) ng/mL Total Protein 7.9 (6.4-8.2) g/dL Albumin 3.8 (3.4-5.0) g/dL Globulin 4.1 H (2.6-4.0) g/dL Albumin/Globulin Ratio 0.9 (0.9-1.6) Meds: Medications Discontinued Medications Generic Name Dose Route Start Last Admin Trade Name Freq PRN Reason Stop Dose Admin Aspirin 243 mg 05/04/20 00:00 05/04/20 00:03 Aspirin 81 Mg Tab.Chew PO 05/04/20 00:01 243 mg ONETIME ONE Administration Clonazepam 1 mg 05/04/20 02:01 05/04/20 02:16 Clonazepam 0.5 Mg Tab PO 05/04/20 02:02 Not Given ONETIME ONE Lorazepam 1 mg 05/04/20 02:14 05/04/20 02:19 Lorazepam 2 Mg/Ml Sdv IVPUSH 05/04/20 02:15 1 mg ONETIME ONE Administration Departure - Departure Time of Disposition: 00:39 Disposition: Home, Self-Care 01 Condition: Good Clinical Impression: Chest pain, Dehydration - Discharge Information Prescriptions: Ondansetron [Zofran ODT] 4 mg PO Q6H PRN #12 tab.dis PRN Reason: Nausea/Vomiting Instructions: Nonspecific Chest Pain, Adult, Dehydration, Adult, [id number] Referrals: PCP,None [Primary Care Provider] - Forms: ED Department Discharge Additional Instructions: He is going to have to drink a little more fluid after dialysis. Talk to his doctor about this. [facility] - cardiology [address] [place] [address] [facility] - Primary Care [address] [place], [place] [id number] [address] [address] The following information is given to patients seen in the emergency department who are being discharged to home. This information is to outline your options for follow-up care. We provide all patients seen in our emergency department with a follow-up referral. The need for follow-up, as well as the timing and circumstances, are variable depending upon the specifics of your emergency department visit. If you don't have a primary care physician on staff, we will provide you with a referral. We always advise you to contact your personal physician following an emergency department visit to inform them of the circumstance of the visit and for follow-up with them and/or the need for any referrals to a consulting specialist. The emergency department will also refer you to a specialist when appropriate. This referral assures that you have the opportunity for follow-up care with a specialist. All of these measure are taken in an effort to provide you with optimal care, which includes your follow-up. Under all circumstances we always encourage you to contact your private physician who remains a resource for coordinating your care. When calling for follow-up care, please make the office aware that this follow-up is from your recent emergency room visit. If for any reason you are refused follow-up, please contact the [facility] Emergency Department at and asked to speak to the emergency department charge nurse. Sepsis Event Note (ED) - Focused Exam Vital Signs: Vital Signs Temp Pulse Resp BP Pulse Ox 05/04/20 02:00 62 18 101/38 L 97 05/04/20 00:30 72 18 105/82 96 05/04/20 00:06 36.9 C 64 18 91/49 L 97 - My Orders Last 24 Hours: My Active Orders 05/04/20 00:06 EKG 12 Lead [EKG Documentation Completion] [RC] STAT - Assessment/Plan Last 24 Hours: My Active Orders 05/04/20 00:06 EKG 12 Lead [EKG Documentation Completion] [RC] STAT
--- NOTE | 2020-05-04 00:26 | CR ---
INDICATION: Chest pain TECHNIQUE: Chest radiograph 1 view COMPARISON: None FINDINGS: Mediastinum: The mediastinum is normal in appearance. The heart silhouette is normal in size and morphology. Lung: Both lungs are unremarkable in appearance. No sign of pleural effusion seen. No pneumothorax is identified. Bone and Soft tissue: Unremarkable for age. IMPRESSION: 1. No acute cardiopulmonary disease is seen. Dictated by: Braydon Johns MD @ 05/04/2020 00:24:17 (Electronically Signed)
[2020-05-04 00:52] LABS: BLOOD UREA NITROGEN,BUN 23 mg/dL (7.0-18.0); CARBON DIOXIDE,CO2 26.7 mmol/L (21.0-32.0); CHLORIDE,CL 97 mmol/L (98-107); GLUCOSE RANDOM 103 mg/dL (74-106); POTASSIUM,K 4.7 mmol/L (3.5-5.1); SODIUM,NA 133 mmol/L (136-148)
[2020-05-04] MEDS ORDERED: ClonazePAM 0.5 MG Tab PO ONE (02:01)
[2020-05-04] MEDS ORDERED: LORazepam 2 MG/ML SDV IVPUSH ONE (02:14)
[2020-05-04 04:14] VITALS: BP 90/55; PULSE 66
== END 2020-05-04 04:00 | disposition home or self-care (01) ==
LOC: MW.ED 23:59
DX: E86.0 Dehydration (principal); R07.89 Other chest pain; E66.9 Obesity, unspecified; Z68.37 Body mass index [BMI] 37.0-37.9, adult; Z79.01 Long term (current) use of anticoagulants; Z88.5 Allergy status to narcotic agent; Z79.82 Long term (current) use of aspirin; Z79.899 Other long term (current) drug therapy
CPT/HCPCS: 36415; 71045; 80053; 84484; 85025; 93005; 96374; 99285; A9270; J2060

== ENCOUNTER 2020-11-15 09:31 | Emergency (ER) | payer MEDICARE, BC ==
[2020-11-15] MEDS ORDERED: Sodium Chloride 0.9% 500 ML IV ONE (09:43)
[2020-11-15] MEDS ORDERED: Ondansetron 4 MG/2 ML SDV IVPUSH ONE (09:43)
[2020-11-15] MEDS ORDERED: Sodium Chloride 0.9% 10 ML Syringe FLUSH PRN (09:43)
[2020-11-15] MEDS ORDERED: Sodium Chloride 0.9% 2.5 ML Syringe FLUSH PRN (09:43)
--- NOTE | 2020-11-15 10:15 | EDM.PDOC ---
ED HPI GENERAL MEDICAL PROBLEM - General Chief Complaint: Chest Pain Stated Complaint: END STAGE RENAL/DAMAGED KIDNEY Time Seen by Provider: 11/15/20 09:34 - History of Present Illness INITIAL COMMENTS - FREE TEXT/NARRATIVE: HISTORY AND PHYSICAL: History of present illness: This is a 45-year-old gentleman with a history significant for end-stage renal disease secondary to kidney stones who is currently on hemodialysis who presents ER today secondary to chest pain and shortness of breath. Patient reports that he had a renal transplant that failed and is back on hemodialysis at this time. Patient reports during his dialysis he felt that they took off too much fluid and started feeling weak and dizzy and start developing chest discomfort which she has had before when they have taken off too much fluid. Patient reports he has had no recent fevers, shakes, chills, nausea, vomiting, diarrhea, dysuria, frequency, urgency. Patient ports that the pain is sharp Review of systems: As per history of present illness and below otherwise all systems reviewed and negative. Past medical history: As per history of present illness and as reviewed below otherwise noncontributory. Surgical history: As per history of present illness and as reviewed below otherwise noncontributory. Social history: No reported history of drug abuse. Family history: As per history of present illness and as reviewed below otherwise no ncontributory. Physical exam: HEENT: Atraumatic, normocephalic, pupils reactive, negative for conjunctival pallor or scleral icterus, mucous membranes moist, throat clear, neck supple, nontender, trachea midline. Lungs: Clear to auscultation, breath sounds equal bilaterally, chest nontender. Heart: S1S2, regular, negative for clicks, rubs, or JVD. Abdomen: Soft, nondistended, nontender. Negative for masses or hepatosplenomegaly. Negative for costovertebral tenderness. Pelvis: Stable nontender. Genitourinary: Deferred. Rectal: Deferred. Extremities: Atraumatic, negative for cords or calf pain. Neurovascular unremarkable. Neuro: Awake, alert, oriented. Cranial nerves II through XII unremarkable. Cerebellum unremarkable. Motor and sensory unremarkable throughout. Exam nonfocal. Diagnostics: Chest Xray: Normal cardiac silhouette No infiltrates or effusions identified. No PTX No evidence of acute bony fracture. As interpreted by ER MD: Emigdio EKG: As interpreted by ER physician: Emigdio: Nonspecific ST-T wave abnormalities Normal axis No evidence of ST elevation DC Normal sinus rhythm heart rate of 64 November 15, 2020 9:28 AM Therapeutics: [] Assessment and plan: This is a 45-year-old gentleman with a history significant for end-stage renal disease who is currently on hemodialysis who presents ER today secondary to discomfort in his chest that occurred while he is getting his hemodialysis. Patient felt that he got too much fluid taken off and started feeling a sharp pain to his left side of his chest that increases with inspiration and palpation. Patient's labs are all within normal limits. Patient has a normal troponin. Patient's EKG was unremarkable. Patient's pain has resolved after 500 mL of fluids without any nitroglycerin. Patient reports that he had a stress test 1 year ago which was normal. Patient has never had a cardiac catheterization and is never had any admissions for chest pain in the past. I have discussed with the patient my concern with his chest discomfort and the need for admission for further observation. At this time, the patient reports that his pain is gone and would prefer to be discharged home does not want to be admitted. Patient understands the risk of discharged home and the risks of chest pain resulting in a possible myocardial infarction and . Patient has agreed for a second troponin. Utilizing shared decision making, if the second troponin is normal and his labs are otherwise unremarkable, patient would like to be discharged home. Definitive disposition and diagnosis as appropriate pending reevaluation and review of above. chest Pain Score (Numeric/FACES): 3 - Related Data Allergies Allergy/AdvReac Type Severity Reaction Status Date / Time codeine Allergy Nausea and Verified 11/15/20 09:33 Vomiting morphine Allergy Nausea and Verified 11/15/20 09:33 Vomiting Home Meds: Home Meds Aspirin [[place] Aspirin EC] 1 tab PO BEDTIME 07/22/17 [History] Folic Acid 1 mg PO DAILY 07/22/17 [History] Multivitamin [Multivitamins] 1 tab PO BEDTIME 07/22/17 [History] predniSONE [Prednisone] 5 mg PO DAILY 07/22/17 [History] Sertraline HCl 100 mg PO DAILY 12/30/18 [History] Gabapentin [Neurontin] 100 cap PO BEDTIME 03/14/19 [History] amLODIPine [Norvasc] 5 mg PO DAILY 03/14/19 [History] Ondansetron [Zofran ODT] 4 mg PO Q6H PRN #12 tab.dis 05/04/20 [Rx] Past Medical History HEENT History: Reports: Other (See Below) Other HEENT History: uses reading glasses Respiratory History: Reports: Sleep Apnea Other Respiratory History: just diagnosed with sleep apnea Gastrointestinal History: Reports: GERD, PUD Other Gastrointestinal History: has Umbilical Hernia, umbilical heria Genitourinary History: Reports: Dialysis, Renal Disease Other Genitourinary History: 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- previous peritoneal dialysis catheter insertion and removal, A-V fistula on left arm matured Neurological History: Reports: Other (See Below) Other Neuro History: hx of motion sickness Psychiatric History: Reports: Anxiety, Depression Endocrine/Metabolic History: Reports: Obesity/BMI 30+ Hematologic History: Reports: Anticoagulation Therapy Other Hematologic History: takes heparin weekly Immunologic History: Reports: Solid Organ Transplant - Infectious Disease History Infectious Disease History: Reports: Chicken Pox, Novel Coronavirus - Past Surgical History Head Surgeries/Procedures: Reports: None Cardiovascular Surgical History: Reports: Vascular Surgery Other Cardiovascular Surgeries/Procedures: AV fistula left arm GI Surgical History: Reports: Bariatric Procedure, Colonoscopy Male Surgical History: Reports: Nephrectomy, Other (See Below) Other Male Surgeries/Procedures: hx of kidney transplant- "blood vessel kinked off and the kidney " post-op Social & Family History - Family History Family Medical History: No Pertinent Family History - Caffeine Use Caffeine Use: Reports: Coffee - Living Situation & Occupation Living situation: Reports: Occupation: Disabled ED ROS GENERAL - Review of Systems Review Of Systems: See Below ED EXAM, GENERAL - Physical Exam Exam: See Below Course - Vital Signs Last Recorded V/S: Last Vital Signs Temp 97.0 F 11/15/20 09:33 Pulse 66 11/15/20 09:33 Resp 18 11/15/20 09:33 BP 94/54 L 11/15/20 09:33 Pulse Ox 94 L 11/15/20 09:33 - Orders/Labs/Meds Orders: Active Orders 24 hr Category Date Time Status TROPONIN I [CHEM] Stat Lab 11/15/20 11:45 Ordered Sodium Chloride 0.9% [Saline Flush] Med 11/15/20 09:43 Active 10 ml FLUSH ASDIRECTED PRN Sodium Chloride 0.9% [Saline Flush] Med 11/15/20 09:43 Active 2.5 ml FLUSH ASDIRECTED PRN Saline Lock Insert [OM.PC] Stat Oth 11/15/20 09:43 Ordered Medication Orders Sodium Chloride (Sodium Chloride 0.9% 10 Ml Syringe) 10 ml FLUSH ASDIRECTED PRN PRN Reason: Keep Vein Open Last Admin: 11/15/20 09:55 Dose: 10 ml Documented by: [id number] Sodium Chloride (Sodium Chloride 0.9% 2.5 Ml Syringe) 2.5 ml FLUSH ASDIRECTED PRN PRN Reason: Keep Vein Open Last Admin: 11/15/20 09:55 Dose: 2.5 ml Documented by: [id number] Labs: Laboratory Tests 11/15/20 11/15/20 Range/Units 09:35 09:35 WBC 6.65 (4.0-11.0) K/uL RBC 3.43 L (4.50-5.90) M/uL Hgb 11.1 L (13.0-17.0) g/dL Hct 32.6 L (38.0-50.0) % MCV 95.0 (80.0-98.0) fL MCH 32.4 H (27.0-32.0) pg MCHC 34.0 (31.0-37.0) g/dL RDW Std Deviation 45.7 (28.0-62.0) fl RDW Coeff of Melissa 13 (11.0-15.0) % Plt Count 236 (150-400) K/uL MPV 9.40 (7.40-12.00) fL Neut % (Auto) 65.0 (48.0-80.0) % Lymph % (Auto) 24.5 (16.0-40.0) % [place] % (Auto) 6.5 (0.0-15.0) % Eos % (Auto) 3.5 (0.0-7.0) % Baso % (Auto) 0.5 (0.0-1.5) % Neut # (Auto) 4.3 (1.4-5.7) K/uL Lymph # (Auto) 1.6 (0.6-2.4) K/uL [place] # (Auto) 0.4 (0.0-0.8) K/uL Eos # (Auto) 0.2 (0.0-0.7) K/uL Baso # (Auto) 0.0 (0.0-0.1) K/uL Nucleated RBC % 0.0 /100WBC Nucleated RBCs # 0 K/uL Sodium 137 (136-148) mmol/L Potassium 3.5 (3.5-5.1) mmol/L Chloride 97 L (98-107) mmol/L Carbon Dioxide 29.2 (21.0-32.0) mmol/L BUN 40 H (7.0-18.0) mg/dL Creatinine 5.8 H (0.8-1.3) mg/dL Est Cr Clr Drug Dosing 15.74 mL/min Estimated GFR (MDRD) 10.5 ml/min Glucose 83 (74-106) mg/dL Calcium 9.0 (8.5-10.1) mg/dL Total Bilirubin 0.3 (0.2-1.0) mg/dL AST 17 (15-37) IU/L ALT 42 (14-63) IU/L Alkaline Phosphatase 120 H (46-116) U/L Troponin I < 0.050 (0.000-0.056) ng/mL Total Protein 8.1 (6.4-8.2) g/dL Albumin 3.9 (3.4-5.0) g/dL Globulin 4.2 H (2.6-4.0) g/dL Albumin/Globulin Ratio 0.9 (0.9-1.6) Meds: Medications Generic Name Dose Route Start Last Admin Trade Name Alma PRN Reason Stop Dose Admin Sodium Chloride 10 ml 11/15/20 09:43 11/15/20 09:55 Sodium Chloride 0.9% 10 Ml Syringe FLUSH 10 ml ASDIRECTED PRN Administration Keep Vein Open Sodium Chloride 2.5 ml 11/15/20 09:43 11/15/20 09:55 Sodium Chloride 0.9% 2.5 Ml Syringe FLUSH 2.5 ml ASDIRECTED PRN Administration Keep Vein Open Discontinued Medications Generic Name Dose Route Start Last Admin Trade Name Alma PRN Reason Stop Dose Admin Sodium Chloride 500 mls @ 999 mls/hr 11/15/20 09:43 11/15/20 09:53 Normal Saline IV 11/15/20 10:13 999 mls/hr .Bolus ONE Administration Ondansetron HCl 4 mg 10/01/21 09:43 11/15/20 09:54 Ondansetron 4 Mg/2 Ml Sdv IVPUSH 11/15/20 09:44 4 mg ONETIME ONE Administration Departure - Departure Time of Disposition: 11:56 Disposition: Home, Self-Care 01 Condition: Good Clinical Impression: Nonspecific chest pain, End stage renal disease - Discharge Information Instructions: Nonspecific Chest Pain, Adult Forms: ED Department Discharge Additional Instructions: You were seen and evaluated in the ER today secondary to pain that developed in your chest while you are getting her dialysis. It is unclear whether or not this pain is related to your heart although it appears to be atypical for cardiac type chest pain. All your blood tests have been normal. As we discussed, we will discharge her to home however I highly recommend that he return to the ER if your pain returns that we can get you admitted to the hospital for further cardiac evaluation. Please resume with your normal dialy sis. Please make an appointment to see your family doctor next week for reevaluation. The following information is given to patients seen in the emergency department who are being discharged to home. This information is to outline your options for follow-up care. We provide all patients seen in our emergency department with a follow-up referral. The need for follow-up, as well as the timing and circumstances, are variable depending upon the specifics of your emergency department visit. If you don't have a primary care physician on staff, we will provide you with a referral. We always advise you to contact your personal physician following an emergency department visit to inform them of the circumstance of the visit and for follow-up with them and/or the need for any referrals to a consulting specialist. The emergency department will also refer you to a specialist when appropriate. This referral assures that you have the opportunity for follow-up care with a specialist. All of these measure are taken in an effort to provide you with optimal care, which includes your follow-up. Under all circumstances we always encourage you to contact your private physician who remains a resource for coordinating your care. When calling for follow-up care, please make the office aware that this follow-up is from your recent emergency room visit. If for any reason you are refused follow-up, please contact the [facility] Emergency Department at and asked to speak to the emergency department charge nurse. [facility] - Primary Care [address] [place] [address] [facility] [address] [place] [address] Sepsis Event Note (ED) - Evaluation Sepsis Screening Result: No Definite Risk - Focused Exam Vital Signs: Vital Signs Temp Pulse Resp BP Pulse Ox 11/15/20 09:33 97.0 F 66 18 94/54 L 94 L - My Orders Last 24 Hours: My Active Orders 11/15/20 09:43 Sodium Chloride 0.9% [Saline Flush] 10 ml FLUSH ASDIRECTED PRN Sodium Chloride 0.9% [Saline Flush] 2.5 ml FLUSH ASDIRECTED PRN Saline Lock Insert [OM.PC] Stat 11/15/20 11:45 TROPONIN I [CHEM] Stat - Assessment/Plan Last 24 Hours: My Active Orders 11/15/20 09:43 Sodium Chloride 0.9% [Saline Flush] 10 ml FLUSH ASDIRECTED PRN Sodium Chloride 0.9% [Saline Flush] 2.5 ml FLUSH ASDIRECTED PRN Saline Lock Insert [OM.PC] Stat 11/15/20 11:45 TROPONIN I [CHEM] Stat
[2020-11-15 10:26] LABS: BLOOD UREA NITROGEN,BUN 40 mg/dL (7.0-18.0); CARBON DIOXIDE,CO2 29.2 mmol/L (21.0-32.0); CHLORIDE,CL 97 mmol/L (98-107); GLUCOSE RANDOM 83 mg/dL (74-106); POTASSIUM,K 3.5 mmol/L (3.5-5.1); SODIUM,NA 137 mmol/L (136-148)
--- NOTE | 2020-11-15 10:38 | CR ---
INDICATION: Chest Pain TECHNIQUE: Chest 1 view. COMPARISON: 05/04/20 FINDINGS: Cardiovascular and mediastinum: Heart size and vasculature are normal in caliber and appearance. Mediastinum is within normal limits. Lungs and pleural space: Lungs are clear. No sign of infiltrate or mass. No sign of pleural effusion. No pneumothorax. Bones and soft tissues: No significant findings. IMPRESSION: Unremarkable chest. Dictated by: Enzo Teague MD @ 11/15/2020 10:36:24 (Electronically Signed)
[2020-11-15 13:26] VITALS: BP 119/71; PULSE 71
== END 2020-11-15 12:58 | disposition home or self-care (01) ==
LOC: MW.ED 09:31
DX: R07.89 Other chest pain (principal); N18.6 End stage renal disease; E66.9 Obesity, unspecified; Z79.01 Long term (current) use of anticoagulants; Z68.29 Body mass index [BMI] 29.0-29.9, adult; Z88.5 Allergy status to narcotic agent; Z79.82 Long term (current) use of aspirin; Z79.899 Other long term (current) drug therapy; Z86.16 Personal history of COVID-19
CPT/HCPCS: 36415; 71045; 80053; 84484; 85025; 93005; 96374; 99285; J2405; J7030

== ENCOUNTER 2024-05-18 10:02 | Emergency (ER) | payer MEDICARE, BC ==
[2024-05-18] MEDS ORDERED: HYDROmorphone 2 MG/ML Syringe IVPUSH ONE (10:15)
[2024-05-18 10:40] LABS: APPEARANCE,URINE CLEAR; BILIRUBIN,URINE NEGATIVE (NEGATIVE); COLOR,URINE YELLOW; GLUCOSE,URINE NEGATIVE (NEGATIVE); KETONES,URINE NEGATIVE (NEGATIVE); LEUKOCYTE ESTERASE,URINE NEGATIVE (NEGATIVE); NITRITE,URINE NEGATIVE (NEGATIVE); OCCULT BLOOD,URINE NEGATIVE (NEGATIVE); PH,URINE 5.5 (5.0-8.0); PROTEIN,URINE NEGATIVE (NEGATIVE); UROBILINOGEN,URINE 0.2 EU/dL (<2.0)
[2024-05-18] MEDS: Sodium Chloride 0.9% 1,000 ML IV ONE (10:49)
[2024-05-18] MEDS: HYDROmorphone 0.5 MG/0.5 ML Syringe IVPUSH ONE (10:49)
[2024-05-18] MEDS: Ondansetron 4 MG/2 ML SDV IVPUSH ONE ×2 (10:49→11:49)
[2024-05-18 10:55] LABS: BASOPHILS ABSOLUTE AUTO 0.03 K/uL (0.00-0.20); BASOPHILS PERCENT AUTO 0.9 % (0.0-1.0); EOSINOPHILS ABSOLUTE AUTO 0.04 K/uL (0.00-0.45); EOSINOPHILS PERCENT AUTO 1.2 % (0.0-6.0); HEMATOCRIT 35.7 % (42.0-52.0); IMMATURE GRAN PERCENT AUTO 2.9 % (0.0-0.4); LYMPHOCYTES PERCENT AUTO 26.1 % (24.0-44.0); MEAN CORPUSCULAR HEMOGLOBIN 30.6 pg (28.0-32.0); MEAN CORPUSCULAR HGB CONC 33.6 g/dL (32.0-36.0); MEAN CORPUSCULAR VOLUME 91.1 fL (83.0-99.0); MEAN PLATELET VOLUME 10.3 fL (9.4-12.4); MONOCYTES ABSOLUTE AUTO 0.27 K/uL (0.00-0.80); MONOCYTES PERCENT AUTO 7.8 % (0.0-8.0); NEUTROPHILS ABSOLUTE AUTO 2.11 K/uL (1.80-7.70); NEUTROPHILS PERCENT AUTO 61.1 % (41.0-71.0); PLATELET COUNT,PLT 144 K/uL (150-400); RED BLOOD CELL COUNT 3.92 M/uL (4.52-5.90); WHITE BLOOD CELL COUNT,WBC 3.45 K/uL (3.9-11.3)
[2024-05-18 11:15] LABS: A/G RATIO 1.4 (0.9-1.6); ALBUMIN 4.2 g/dL (3.4-5.0); BILIRUBIN TOTAL 0.5 mg/dL (0.2-1.0); CALCIUM 10.6 mg/dL (8.5-10.1); CARBON DIOXIDE,CO2 24.2 mmol/L (21.0-32.0); CREATININE 1.7 mg/dL (0.8-1.3); EST CRCL DRUG DOSING (CG) 53.68 mL/min; POTASSIUM,K 4.6 mmol/L (3.5-5.1); PROTEIN TOTAL,TP 7.2 g/dL (6.4-8.2)
[2024-05-18 12:21] VITALS: PULSE 51
[2024-05-18 12:45] VITALS: BP 112/70
== END 2024-05-18 12:45 | disposition home or self-care (01) ==
LOC: MW.ED 10:02
DX: N20.0 Calculus of kidney (principal); N18.6 End stage renal disease; Z99.2 Dependence on renal dialysis; Z75.8 Other problems related to medical facilities and other health care; Z88.5 Allergy status to narcotic agent; Z79.82 Long term (current) use of aspirin; Z79.899 Other long term (current) drug therapy; Z86.16 Personal history of COVID-19
CPT/HCPCS: 36415; 72131; 74176; 80053; 81003; 83690; 85025; 96361; 96374; 96375; 96376; 99284; J2405; J7030; 99283